=== PATIENT | male | born 1990 | race Caucasian/White ===

== ENCOUNTER 2016-03-29 12:46 | Emergency (ER) | payer SELFPAY ==
--- NOTE | 2016-03-29 13:04 | ER Document Report ---
ED Medical Screen (RME) - General Chief Complaint: Shortness Of Breath Stated Complaint: DIFFICULTY BREATHING Time seen by provider: 13:03 Mode of Arrival: Wheelchair Information source: Patient TRAVEL OUTSIDE OF THE [place] IN LAST 30 DAYS: No - HPI Patient complains to provider of: COUGH, DIFFICULTY BREATHING Onset: Other - 2 DAYS Onset/Duration: Gradual Quality of pain: Achy Severity: Moderate Pain Level: 4 Associated Symptoms: Cough (nonproductive), Hurts to breath, Shortness of breath Exacerbated by: Coughing, Deep breathing Relieved by: Denies Similar symptoms previously: Yes Recently seen / treated by doctor: No - Related Data Smoking: Quit less than 1 year Frequency of alcohol use: Rare Drug Abuse: None Pertinent History: LVH COPD ASTHMA HTN Allergies/Adverse Reactions: No Known Allergies Allergy (Verified 03/29/16 12:55) Past Medical History - Social History Chew tobacco use (# tins/day): - recently quit Frequency of alcohol use: None Drug Abuse: None - Past Medical History Cardiac Medical History: Reports: Hx Hypertension Pulmonary Medical History: Reports: Hx Asthma, Hx COPD Psychiatric Medical History: Reports: Hx Anxiety, Hx Depression - Immunizations Hx Diphtheria, Pertussis, Tetanus Vaccination: Yes Physical Exam - Vital signs Vitals: Temp Pulse Resp BP Pulse Ox 98.7 F 80 24 H 138/78 H 94 03/29/16 12:56 03/29/16 12:56 03/29/16 12:56 03/29/16 12:56 03/29/16 12:56 Course - Vital Signs Vital signs: Temp Pulse Resp BP Pulse Ox 98.7 F 80 24 H 138/78 H 94 03/29/16 12:56 03/29/16 12:56 03/29/16 12:56 03/29/16 12:56 03/29/16 12:56
[2016-03-29] MEDS ORDERED: ALBUTEROL SULFATE 0.083% NEB 2.5 MG/3 ML AMPUL NEB ONE (13:13)
[2016-03-29] MEDS ORDERED: PREDNISONE 20 MG TABLET PO ONE (14:57)
[2016-03-29] MEDS ORDERED: IPRATROPIUM/ALBUTEROL 0.5-2.5 MG/3 ML AMPUL NEB ONE (14:57)
--- NOTE | 2016-03-29 15:02 | ER Document Report ---
ED Respiratory Problem - General Chief Complaint: Shortness Of Breath Stated Complaint: DIFFICULTY BREATHING Time seen by provider: 15:01 Mode of Arrival: Wheelchair Information source: Patient Notes: This is a 24-year-old man with a history of COPD/obstructive sleep apnea, morbid obesity, chronic respiratory failure, hypertension, hypothyroidism. The patient presents to the emergency room with cough, shortness of breath, wheezing , subjective fevers and chills and sinus congestion. Patient states symptoms started 2-3 days ago. TRAVEL OUTSIDE OF THE [place] IN LAST 30 DAYS: No - HPI Patient complains to provider of: COPD, Cough, Short of breath Onset: Just prior to arrival Duration: Continuous Initiating Event: URI Quality of pain: No pain Severity: None Pain Level: Denies Context: Hx COPD Short of Breath: Moderate Chest pain/discomfort: denies: Center, Constant, Heaviness, Intermittent, Left, Pain, Radiates to arm, Radiates to back, Radiates to jaw, Right, Tightness, Worse with deep breaths Cough: Nonproductive Sputum amount: None Sputum color: denies: Brown, Clear, Creamy, [place], Green, [place] tinged, Red (blood ), Red Specks, Rust, Small Clots, [place], White, Yellow Sputum consistency: denies: Frothy, Mucoid, Mucoid Plug, Tenacious, Thick, Thin At home treatment: denies: Bronchodilators, CPAP, Diuretics, Inhaled steroids, Oral steroids, Oxygen, Singulair, Theophylline EMS treatments: No: Bronchodilators, CPAP, Diuretics, Epinephrine, Nitrates, Oxygen, Solumedrol Associated symptoms: Congestion, Cough, Short of breath, Wheezing Similar symptoms previously: Yes Recently seen / treated by doctor: No - Related Data Allergies/Adverse Reactions: No Known Allergies Allergy (Verified 03/29/16 12:55) Past Medical History - General Information source: Patient - Social History Smoking Status: Former Smoker Cigarette use (# per day): No Chew tobacco use (# tins/day): No - recently quit Smoking Education Provided: No Frequency of alcohol use: None Drug Abuse: None Lives with: Family Family History: Reviewed & Not Pertinent Patient has suicidal ideation: No Patient has homicidal ideation: No - Past Medical History Cardiac Medical History: Reports: Hx Hypertension Pulmonary Medical History: Reports: Hx Asthma, Hx COPD Psychiatric Medical History: Reports: Hx Anxiety, Hx Depression - Immunizations Hx Diphtheria, Pertussis, Tetanus Vaccination: Yes Review of Systems - Review of Systems Constitutional: Chills EENT: See HPI Cardiovascular: No symptoms reported Respiratory: See HPI Gastrointestinal: No symptoms reported Genitourinary: No symptoms reported Male Genitourinary: No symptoms reported Musculoskeletal: No symptoms reported Skin: No symptoms reported Hematologic/Lymphatic: No symptoms reported Neurological/Psychological: No symptoms reported Physical Exam - Vital signs Vitals: Temp Pulse Resp BP Pulse Ox 98.7 F 80 24 H 138/78 H 94 03/29/16 12:56 03/29/16 12:56 03/29/16 12:56 03/29/16 12:56 03/29/16 12:56 Notes: Physical exam: GENERAL: 75-year-old man, alert and oriented 3, no acute distress HEAD: Atraumatic, normocephalic. EYES: Pupils equal round and reactive to light, extraocular movements intact, sclera anicteric, conjunctiva are normal. ENT: TMs normal, nares patent, oropharynx clear without exudates. Moist mucous membranes. NECK: Normal range of motion, supple without lymphadenopathy or JVD. LUNGS: Wheezing, nonproductive cough. HEART: Regular rate and rhythm without murmurs, rubs or gallops. ABDOMEN: Soft, nontender, normoactive bowel sounds. No guarding, no rebound. No masses appreciated. EXTREMITIES: Normal range of motion, no pitting or edema. No clubbing or cyanosis. NEUROLOGICAL: Cranial nerves II through XII grossly intact. Normal speech, normal gait. PSYCH: Normal mood, normal affect. SKIN: Warm, Dry, normal turgor, no rashes or lesions noted. Course - Re-evaluation Re-evalutation: 03/29/16 23:55 Patient given nebulizer treatment. Looking better. Steroids, azithromycin and guaifenesin given in the ER. - Vital Signs Vital signs: Temp Pulse Resp BP Pulse Ox 98.9 F 72 24 H 139/82 H 95 03/29/16 16:48 03/29/16 16:48 03/29/16 12:56 03/29/16 16:48 03/29/16 16:48 - Diagnostic Test Radiology reviewed: Image reviewed, Reports reviewed - Chest x-ray shows no infiltrates or effusions Discharge - Discharge Clinical Impression: bronchitis with bronchospasm, COPD Hypertension Qualifiers: Hypertension type: essential hypertension Qualified Code(s): I10 - Essential ( primary) hypertension Clinical Impression: (Ruled Out): Prehypertension Condition: Stable Disposition: HOME, SELF-CARE Additional Instructions: Recommendations: Rest, drink plenty of fluids. Start the azithromycin: Start tomorrow, you were given today's dose in the ER. Start the prednisone tomorrow: New given today's dose in the ER Use the inhaler as needed. Guaifenesin twice daily (you were given tonight's dose in the ER). Return to the emergency room for worsening shortness of breath or any concerns he getting worse. Prescriptions: Azithromycin 250 mg PO DAILY #4 tablet Guaifenesin [Guaifenesin LA] 1,200 mg PO BID #10 tab.sr.12h Prednisone [Deltasone 20 mg Tablet] 3 tab PO DAILY 5 Days Forms: Elevated Blood Pressure, Return to Work Referrals: MAY HERNANDEZ MD [Primary Care Provider] - Follow up in 1 week
[2016-03-29] MEDS ORDERED: AZITHROMYCIN 250 MG TABLET PO ONE (15:34)
[2016-03-29] MEDS ORDERED: GUAIFENESIN 600 MG TABLET.SA PO ONE (16:39)
[2016-03-29 17:15] VITALS: BP 139/82
== END 2016-03-29 17:14 | disposition home or self-care (01) ==
LOC: ER 12:46
DX: J44.9 Chronic obstructive pulmonary disease, unspecified (principal); J45.909 Unspecified asthma, uncomplicated; R05 Cough; R06.02 Shortness of breath; R68.83 Chills (without fever); R09.81 Nasal congestion; I10 Essential (primary) hypertension; E66.01 Morbid (severe) obesity due to excess calories; Z68.44 Body mass index [BMI] 60.0-69.9, adult; Z87.891 Personal history of nicotine dependence
CPT/HCPCS: 94640 ×2; 99285; 87804; 71020; J7512; J7620

== ENCOUNTER 2016-05-01 12:09 | Inpatient (IN) | payer SELFPAY ==
--- NOTE | 2016-05-01 12:43 | ER Document Report ---
ED Medical Screen (RME) - General Stated Complaint: CHEST PAIN Mode of Arrival: Wheelchair Information source: Patient Notes: Patient presents complaining of COPD exacerbation. Patient states he's been having some difficulty with his compressor for his home oxygen. Patient does complain of some chest pain but states his only with coughing. TRAVEL OUTSIDE OF THE [place] IN LAST 30 DAYS: No - Related Data Allergies/Adverse Reactions: No Known Allergies Allergy (Verified 03/29/16 12:55) Past Medical History - Past Medical History Cardiac Medical History: Reports: Hx Hypertension Pulmonary Medical History: Reports: Hx Asthma, Hx COPD Psychiatric Medical History: Reports: Hx Anxiety, Hx Depression - Immunizations Hx Diphtheria, Pertussis, Tetanus Vaccination: Yes Physical Exam - Respiratory Respiratory status: Labored - Slightly labored Breath sounds: Rhonchi, Wheezing - Right side
[2016-05-01 13:13] LABS: ABSOLUTE LYMPHOCYTES (AUTO) 0.9 10^3/uL (0.5-4.7); ABSOLUTE MONOCYTES (AUTO) 0.5 10^3/uL (0.1-1.4); ABSOLUTE NEUT (AUTO) 4.9 10^3/uL (1.7-8.2); BASOPHILS % (AUTO) 0.2 % (0-2); EOSINOPHILS % (AUTO) 0.1 % (0-6); HEMATOCRIT 43.9 % (37.9-51.0); HEMOGLOBIN 14.4 g/dL (13.5-17.0); HGB HCT DIFFERENCE -0.7; LYMPHOCYTES % (AUTO) 13.9 % (13-45); MEAN CORPUSCULAR HEMOGLOBIN 29.6 pg (27.0-33.4); MEAN CORPUSCULAR HGB CONC 32.9 g/dL (32.0-36.0); MEAN CORPUSCULAR VOLUME 90 fl (80-97); MONOCYTES % (AUTO) 8.2 % (3-13); RED BLOOD COUNT 4.86 10^6/uL (4.35-5.55); RED CELL DISTRIBUTION WIDTH 14.6 % (11.5-14.0); SEGMENTED NEUTROPHILS % (AUTO) 77.6 % (42-78); WHITE BLOOD COUNT 6.3 10^3/uL (4.0-10.5)
[2016-05-01] MEDS ORDERED: IPRATROPIUM/ALBUTEROL 0.5-2.5 MG/3 ML AMPUL NEB ONE ×2 (13:54)
[2016-05-01 14:10] LABS: ARTERIAL BLOOD BASE EXCESS 6.5 mmol/L; ARTERIAL BLOOD O2 SATURATION 90.5 % (94-98)
--- NOTE | 2016-05-01 14:18 | ER Document Report ---
ED General - General Chief Complaint: Shortness Of Breath Stated Complaint: CHEST PAIN Mode of Arrival: Wheelchair Information source: Patient Notes: 25-year-old male history of asthma COPD who is on 5 L nasal cannula at home at all times presents with complaints of shortness of breath nonproductive cough. Patient notes that his compressor is not working appropriately and he is unable to call the company since he owes them so much money. Patient denies any fevers or chills nausea vomiting or diarrhea, patient is playing on his cell phone on my arrival to the room TRAVEL OUTSIDE OF THE [place] IN LAST 30 DAYS: No - HPI Onset: Other Onset/Duration: Intermittent Quality of pain: Sharp Severity: Mild Pain Level: 1 Associated symptoms: Chest pain, Shortness of breath Exacerbated by: Walking Relieved by: Denies Similar symptoms previously: Yes Recently seen / treated by doctor: No - Related Data Allergies/Adverse Reactions: No Known Allergies Allergy (Verified 03/29/16 12:55) Past Medical History - General Information source: Patient - Social History Smoking Status: Former Smoker Cigarette use (# per day): No Chew tobacco use (# tins/day): No Smoking Education Provided: No Family History: Reviewed & Not Pertinent - Past Medical History Cardiac Medical History: Reports: Hx Hypertension Pulmonary Medical History: Reports: Hx Asthma, Hx COPD Psychiatric Medical History: Reports: Hx Anxiety, Hx Depression Surgical Hx: Negative - Immunizations Hx Diphtheria, Pertussis, Tetanus Vaccination: Yes Review of Systems - Review of Systems Notes: REVIEW OF SYSTEMS: CONSTITUTIONAL : Denies fever, chills, or sweats. Denies recent illness. EENT: Denies eye, ear, throat, or mouth pain or symptoms. Denies nasal or sinus congestion or discharge. Denies throat, tongue, or mouth swelling or difficulty swallowing. CARDIOVASCULAR: Admits to chest wall pain RESPIRATORY: Admits shortness breath difficulty breathing nonproductive cough GASTROINTESTINAL: Denies abdominal pain or distention. Denies nausea, vomiting , or diarrhea. Denies blood in vomitus, stools, or per rectum. Denies black, tarry stools. Denies constipation. GENITOURINARY: Denies difficulty urinating, painful urination, burning, frequency, blood in urine, or discharge. MUSCULOSKELETAL: Denies back or neck pain or stiffness. Denies joint pain or swelling. SKIN: Denies rash, lesions or sores. HEMATOLOGIC : Denies easy bruising or bleeding. LYMPHATIC: Denies swollen, enlarged glands. NEUROLOGICAL: Denies confusion or altered mental status. Denies passing out or loss of consciousness. Denies dizziness or lightheadedness. Denies headache. Denies weakness or paralysis or loss of use of either side. Denies problems with gait or speech. Denies sensory loss, numbness, or tingling. Denies seizures. PSYCHIATRIC: Denies anxiety or stress. Denies depression, suicidal ideation, or homicidal ideation. ALL OTHER SYSTEMS REVIEWED AND NEGATIVE. Dictation was performed using [employer] recognition software PHYSICAL EXAMINATION: GENERAL: Morbidly obese male moderate respiratory distress HEAD: Atraumatic, normocephalic. EYES: Pupils equal round and reactive to light, extraocular movements intact, sclera anicteric, conjunctiva are normal. ENT: Nares patent, oropharynx clear without exudates. Moist mucous membranes. NECK: Normal range of motion, supple without lymphadenopathy LUNGS: Tachypneic very coarse wheezing all throughout HEART: Regular rate and rhythm without murmurs ABDOMEN: Soft, nontender, nondistended abdomen. No guarding, no rebound. No masses appreciated. Musculoskeletal: Normal range of motion, no pitting or edema. No cyanosis. NEUROLOGICAL: Cranial nerves grossly intact. Normal speech, normal gait. Normal sensory, motor exams PSYCH: Normal mood, normal affect. SKIN: Warm, Dry, normal turgor, no rashes or lesions noted. Physical Exam - Vital signs Vitals: Pulse Ox 95 05/01/16 12:40 Course - Re-evaluation Re-evalutation: 05/01/16 14:21 Patient's blood gas is noted to be consistent with hypercapnia patient immediately ordered a BiPAP 05/01/16 15:48 I will admit the patient due ot the respiratroy distress and hypercapnea. - Vital Signs Vital signs: Temp Pulse Resp BP Pulse Ox 13 92 05/01/16 14:33 05/01/16 13:17 - Laboratory Result Diagrams: 05/01/16 12:55 05/01/16 14:27 Laboratory results interpreted by me: 05/01/16 05/01/16 05/01/16 12:55 13:24 14:27 RDW 14.6 H Carbonic Acid 2.47 H ABG pH 7.27 L ABG pCO2 82.1 H* ABG pO2 69.2 L ABG HCO3 36.9 H ABG Total CO2 39.4 H ABG O2 Saturation 90.5 L Carbon Dioxide 39 H AST 79 H ALT 100 H Critical Care Note - Critical Care Note Total time excluding time spent on procedures (mins): 34 Comments: 34 minutes of critical care time spent in direct contact evaluating and reevaluating the patient, treating symptoms, reviewing labs and studies and speaking with family and consultants excluding any procedures Discharge - Discharge Clinical Impression: Acute exacerbation of COPD with asthma, Hypercapnia Morbid obesity Qualifiers: Obesity type: due to excess calories Qualified Code(s): E66.01 - Morbid (severe ) obesity due to excess calories Condition: Serious Disposition: ADMITTED INPATIENT Admitting Provider: Hospitalist Unit Admitted: [facility]
[2016-05-01 15:04] LABS: ALANINE AMINOTRANSFERASE 100 U/L (21-72); ALBUMIN 3.8 g/dL (3.5-5.0); ALKALINE PHOSPHATASE 65 U/L (38-126); ANION GAP 7 (5-19); ASPARTATE AMINO TRANSFERASE 79 U/L (17-59); BILIRUBIN,TOTAL 0.5 mg/dL (0.2-1.3); BLOOD UREA NITROGEN 12 mg/dL (7-20); CALCIUM 8.7 mg/dL (8.4-10.2); CARBON DIOXIDE 39 mmol/L (22-30); CHLORIDE 98 mmol/L (98-107); CREATINE KINASE 90 U/L (55-170); CREATININE RESULT 0.84 mg/dL (0.52-1.25); GLUCOSE 79 mg/dL (75-110); POTASSIUM 4.5 mmol/L (3.6-5.0); SODIUM 144.2 mmol/L (137-145); TOTAL PROTEIN 7.2 g/dL (6.3-8.2)
[2016-05-01 15:16] LABS: CREATINE KINASE MB 0.87 ng/mL (<4.55)
[2016-05-01 15:18] LABS: TROPONIN I < 0.012 ng/mL
[2016-05-01] MEDS ORDERED: ACETAMINOPHEN 325 MG TABLET PO PRN (16:10)
[2016-05-01] MEDS ORDERED: ONDANSETRON 4 MG TAB.RAPDIS PO PRN (16:10)
[2016-05-01] MEDS ORDERED: ALBUTEROL SULFATE HFA (90 MCG/PUFF) 200 PUFF/8.5 GM MDI IH PRN (16:15)
--- NOTE | 2016-05-01 16:33 | PDOC H&P ---
History of Present Illness Admission Date/PCP: 05/01/2016. Followed at [facility] Patient complains of: Shortness of breath History of Present Illness: ADIN HERNANDEZ III is a 25 year old male with a history of morbid obesity with hypoventilation syndrome and COPD asthma who presents with a 2 to three-day history of shortness of breath. Patient reports that his compressor for his oxygen his broken he has not contacted his provider. Patient reports he got more short of breath but has had fevers and some chills along with a productive cough. The patient was found to have an acute COPD exacerbation and possible right upper lobe pneumonia. The patient denies any chest pain. He denies any orthopnea or PND. He has had lower extremity edema which has been chronic. Past Medical History Cardiac Medical History: Reports: Hypertension Pulmonary Medical History: Reports: Asthma, Chronic Obstructive Pulmonary Disease (COPD) EENT Medical History: Reports: None Neurological Medical History: Reports: None Endocrine Medical History: Reports: Obesity Renal/ Medical History: Reports: None Malignancy Medical History: Reports: None GI Medical History: Reports: None Musculoskeltal Medical History: Reports: None Skin Medical History: Reports: None Psychiatric Medical History: Reports: Depression, General Anxiety Disorder Traumatic Medical History: Reports: None Hematology: Reports: None Infectious Medical History: Reports: None Past Surgical History Past Surgical History: Reports: None Social History Information Source: Patient Lives with: Family Smoking Status: Former Smoker Frequency of Alcohol Use: None Hx Recreational Drug Use: No Drugs: None Hx Prescription Drug Abuse: No - Advance Directive Resuscitation Status: Full Code Family History Family History: Father in his 40s and his health history is unknown. Mother is age 46 alive and has diabetes mellitus. Parental Family History Reviewed: Yes Children Family History Reviewed: No Sibling(s) Family History Reviewed.: No Medication/Allergy Home Medications: Albuterol Sulfate [Albuterol Sulfate 2.5mg/3 mL] 1 vial IH Q4 PRN #30 vial 08/28 Albuterol Sulfate [Proair HFA Inhalation Aerosol 8.5 gm MDI] 1 puff IH Q4 PRN # 1 mdi 08/29/15 Azithromycin 250 mg PO DAILY #4 tablet 08/29/15 Citalopram Hydrobromide [Celexa 40 mg Tablet] 1 tab PO DAILY #30 tablet Prednisone 40 mg PO DAILY #10 tablet 08/29/15 Dicyclomine HCl [Bentyl 20 mg Tablet] 20 mg PO QID #20 tablet 02/19/16 Azithromycin 250 mg PO DAILY #4 tablet 03/29/16 Guaifenesin [Guaifenesin LA] 1,200 mg PO BID #10 tab.sr.12h 03/29/16 Prednisone [Deltasone 20 mg Tablet] 3 tab PO DAILY 5 Days 03/29/16 Allergies/Adverse Reactions: No Known Allergies Allergy (Verified 03/29/16 12:55) Review of Systems Constitutional: PRESENT: chills, fever(s). ABSENT: headache(s), night sweats, weakness, weight gain, weight loss Eyes: ABSENT: visual disturbances Ears: ABSENT: hearing changes Cardiovascular: PRESENT: dyspnea on exertion, edema. ABSENT: chest pain, orthropnea, palpitations Respiratory: PRESENT: cough, dyspnea, sputum. ABSENT: hemoptysis Gastrointestinal: ABSENT: abdominal pain, constipation, diarrhea, hematemesis, hematochezia, nausea, vomiting Genitourinary: ABSENT: dysuria, hematuria Musculoskeletal: ABSENT: joint swelling Integumentary: ABSENT: rash, wounds Neurological: ABSENT: abnormal gait, abnormal speech, confusion, dizziness, focal weakness, syncope Psychiatric: PRESENT: anxiety Endocrine: ABSENT: cold intolerance, heat intolerance, polydipsia, polyuria Hematologic/Lymphatic: ABSENT: easy bleeding, easy bruising Physical Exam Vital Signs: Temp Pulse Resp BP Pulse Ox 13 92 05/01/16 14:33 05/01/16 13:17 General appearance: PRESENT: mild distress, morbidly obese Head exam: PRESENT: atraumatic, normocephalic Eye exam: PRESENT: conjunctiva pink, EOMI, PERRLA. ABSENT: scleral icterus Ear exam: PRESENT: normal external ear exam Mouth exam: PRESENT: moist, tongue midline Neck exam: ABSENT: carotid bruit, JVD, lymphadenopathy, thyromegaly Respiratory exam: PRESENT: rales - Right sided. ABSENT: rhonchi, wheezes Cardiovascular exam: PRESENT: RRR. ABSENT: diastolic murmur, rubs, systolic murmur GI/Abdominal exam: PRESENT: normal bowel sounds, soft. ABSENT: distended, guarding, mass, organolmegaly, rebound, tenderness Rectal exam: PRESENT: deferred Extremities exam: PRESENT: pedal edema. ABSENT: calf tenderness, clubbing Neurological exam: PRESENT: alert, awake, oriented to person, oriented to place , oriented to time, oriented to situation, CN II-XII grossly intact. ABSENT: motor sensory deficit Psychiatric exam: PRESENT: appropriate affect Skin exam: PRESENT: dry, intact, warm. ABSENT: cyanosis, rash Results Laboratory Results: 05/01/16 12:55 05/01/16 14:27 05/01/16 05/01/16 05/01/16 12:55 12:55 13:24 WBC 6.3 RBC 4.86 Hgb 14.4 Hct 43.9 MCV 90 MCH 29.6 MCHC 32.9 RDW 14.6 H Plt Count 203 Seg Neutrophils % 77.6 Lymphocytes % 13.9 Monocytes % 8.2 Eosinophils % 0.1 Basophils % 0.2 Absolute Neutrophils 4.9 Absolute Lymphocytes 0.9 Absolute Monocytes 0.5 Absolute Eosinophils 0.0 Absolute Basophils 0.0 Carbonic Acid 2.47 H HCO3/H2CO3 Ratio 14:1 ABG pH 7.27 L ABG pCO2 82.1 H* ABG pO2 69.2 L ABG HCO3 36.9 H ABG O2 Saturation 90.5 L ABG Base Excess 6.5 FiO2 40% Sodium Cancelled Potassium Cancelled Chloride Cancelled Carbon Dioxide Cancelled Anion Gap Cancelled BUN Cancelled Creatinine Cancelled Est GFR ( Amer) Cancelled Est GFR (Non-Af Amer) Cancelled Glucose Cancelled Calcium Cancelled Total Bilirubin Cancelled AST Cancelled ALT Cancelled Alkaline Phosphatase Cancelled Total Protein Cancelled Albumin Cancelled 05/01/16 14:27 WBC RBC Hgb Hct MCV MCH MCHC RDW Plt Count Seg Neutrophils % Lymphocytes % Monocytes % Eosinophils % Basophils % Absolute Neutrophils Absolute Lymphocytes Absolute Monocytes Absolute Eosinophils Absolute Basophils Carbonic Acid HCO3/H2CO3 Ratio ABG pH ABG pCO2 ABG pO2 ABG HCO3 ABG O2 Saturation ABG Base Excess FiO2 Sodium 144.2 Potassium 4.5 Chloride 98 Carbon Dioxide 39 H Anion Gap 7 BUN 12 Creatinine 0.84 Est GFR ( Amer) > 60 Est GFR (Non-Af Amer) > 60 Glucose 79 Calcium 8.7 Total Bilirubin 0.5 AST 79 H ALT 100 H Alkaline Phosphatase 65 Total Protein 7.2 Albumin 3.8 05/01/16 05/01/16 05/01/16 12:55 12:55 14:27 Creatine Kinase Cancelled 90 CK-MB (CK-2) Cancelled Troponin I Cancelled 05/01/16 14:27 Creatine Kinase CK-MB (CK-2) 0.87 Troponin I < 0.012 Impressions: Chest X-Ray 05/01/16 12:24 IMPRESSION: Early or developing right upper lobe pneumonia Assessment & Plan - Diagnosis (1) Acute exacerbation of COPD with asthma Is this a current diagnosis for this admission?: YesPlan: Patient appears also probably to have pneumonia. We'll treat with Rocephin, Zithromax and Solu-Medrol. Patient is currently on BiPAP and we will continue with that for now along with nebulizers. (2) Morbid obesity Qualifiers: Obesity type: due to excess calories Qualified Code(s): E66.01 - Morbid (severe) obesity due to excess calories Is this a current diagnosis for this admission?: YesPlan: Patient has obesity-hypoventilation syndrome. (3) Hypertension Qualifiers: Hypertension type: essential hypertension Qualified Code(s): I10 - Essential (primary) hypertension Is this a current diagnosis for this admission?: YesPlan: Patient has been on lisinopril 40 mg a day and we will continue with that. (4) Anxiety Is this a current diagnosis for this admission?: YesPlan: Patient has been taking Prozac 40 mg daily and will continue. - Time Time Spent: 50 to 70 Minutes - Inpatient Certification Medical Necessity: Need for Nebulizer Therapy and Monitoring of Response - Plan Summary Plan Summary: We'll admit as a regular inpatient as I anticipate this will require greater than 2 midnight hospital stay.
[2016-05-01] MEDS ORDERED: METHYLPREDNISOLONE INJ 40 MG/1 ML SDV IV ONE (17:00)
[2016-05-01] MEDS ORDERED: FLUOXETINE HCL 20 MG CAPSULE PO ONE (17:00)
[2016-05-01] MEDS: AZITHROMYCIN 250 MG TABLET PO SCH (17:58)
[2016-05-01] MEDS: CEFTRIAXONE 1 GM/D5W RTU 1 GM/50 ML RTUPB IV SCH (17:58)
[2016-05-01] MEDS: DICYCLOMINE HCL 20 MG TABLET PO SCH ×2 (17:59→22:11)
--- NOTE | 2016-05-01 19:26 | EKG REPORT ---
SEVERITY:- ABNORMAL ECG - SINUS TACHYCARDIA INCOMPLETE RIGHT BUNDLE BRANCH BLOCK : Confirmed by: Gibson Chicas 01-May-2016 19:25:28
[2016-05-01] MEDS: ALBUTEROL SULFATE 0.083% NEB 2.5 MG/3 ML AMPUL NEB SCH (21:04)
[2016-05-01] MEDS: FAMOTIDINE 20 MG TABLET PO SCH (22:11)
[2016-05-02 04:41] LABS: HEMATOCRIT 43.9 % (37.9-51.0); HEMOGLOBIN 14.3 g/dL (13.5-17.0); MEAN CORPUSCULAR HEMOGLOBIN 29.6 pg (27.0-33.4); MEAN CORPUSCULAR HGB CONC 32.7 g/dL (32.0-36.0); MEAN CORPUSCULAR VOLUME 91 fl (80-97); RED BLOOD COUNT 4.84 10^6/uL (4.35-5.55); RED CELL DISTRIBUTION WIDTH 14.5 % (11.5-14.0); WHITE BLOOD COUNT 6.7 10^3/uL (4.0-10.5)
[2016-05-02 05:01] LABS: ANION GAP 11 (5-19); BLOOD UREA NITROGEN 14 mg/dL (7-20); CALCIUM 8.6 mg/dL (8.4-10.2); CARBON DIOXIDE 32 mmol/L (22-30); CHLORIDE 100 mmol/L (98-107); CREATININE RESULT 0.62 mg/dL (0.52-1.25); GLUCOSE 127 mg/dL (75-110); MAGNESIUM 2.1 mg/dL (1.6-2.3); SODIUM 142.7 mmol/L (137-145)
[2016-05-02 05:11] LABS: POTASSIUM 5.6 mmol/L (3.6-5.0)
[2016-05-02] MEDS: METHYLPREDNISOLONE INJ 40 MG/1 ML SDV IV SCH ×2 (05:15→17:45)
[2016-05-02] MEDS: ALBUTEROL SULFATE 0.083% NEB 2.5 MG/3 ML AMPUL NEB SCH ×3 (07:42→19:47)
[2016-05-02] MEDS: ENOXAPARIN SODIUM INJ 40 MG/0.4 ML DISP.SYRIN SUBCUT SCH (09:09)
[2016-05-02] MEDS: DICYCLOMINE HCL 20 MG TABLET PO SCH ×4 (09:10→21:09)
[2016-05-02] MEDS: FLUOXETINE HCL 20 MG CAPSULE PO SCH (09:10)
[2016-05-02] MEDS: LISINOPRIL 10 MG TABLET PO SCH (09:11)
[2016-05-02] MEDS: FAMOTIDINE 20 MG TABLET PO SCH ×2 (09:11→21:09)
--- NOTE | 2016-05-02 12:27 | PDOC PROGRESS REPORT ---
Subjective Progress Note for:: 05/02/16 Subjective:: Still complains of shortness of breath. Physical Exam Vital Signs: Temp Pulse Resp BP Pulse Ox 98.0 F 60 17 126/93 H 92 05/02/16 07:31 05/02/16 07:44 05/02/16 07:44 05/02/16 07:31 05/02/16 07:44 Intake & Output 05/01/16 05/02/16 05/03/16 06:59 06:59 06:59 Intake Total 399 Output Total 500 Balance -101 Weight 198.3 kg General appearance: PRESENT: mild distress Eye exam: PRESENT: conjunctiva pink. ABSENT: scleral icterus Mouth exam: PRESENT: moist, tongue midline Neck exam: ABSENT: carotid bruit, JVD, lymphadenopathy, thyromegaly Respiratory exam: PRESENT: wheezes - Bilateral expiratory wheezes. Cardiovascular exam: PRESENT: RRR. ABSENT: diastolic murmur, rubs, systolic murmur GI/Abdominal exam: PRESENT: normal bowel sounds, soft. ABSENT: distended, guarding, mass, organolmegaly, rebound, tenderness Extremities exam: PRESENT: pedal edema - Trace pedal edema.. ABSENT: calf tenderness, clubbing Neurological exam: PRESENT: alert, awake, oriented to person, oriented to place , oriented to time, oriented to situation Psychiatric exam: PRESENT: appropriate affect Skin exam: PRESENT: dry, intact, warm. ABSENT: cyanosis, rash Results Laboratory Results: 05/02/16 03:37 05/02/16 03:37 05/02/16 05/02/16 03:37 03:37 WBC 6.7 RBC 4.84 Hgb 14.3 Hct 43.9 MCV 91 MCH 29.6 MCHC 32.7 RDW 14.5 H Plt Count 179 Sodium 142.7 Potassium 5.6 H D Chloride 100 Carbon Dioxide 32 H Anion Gap 11 BUN 14 Creatinine 0.62 Est GFR ( Amer) > 60 Est GFR (Non-Af Amer) > 60 Glucose 127 H Calcium 8.6 Magnesium 2.1 Impressions: Chest X-Ray 05/01/16 12:24 IMPRESSION: Early or developing right upper lobe pneumonia Assessment & Plan - Diagnosis (1) Acute exacerbation of COPD with asthma Is this a current diagnosis for this admission?: YesPlan: Patient appears also probably to have pneumonia. We'll treat with Rocephin, Zithromax and Solu-Medrol. Patient is currently on BiPAP and we will continue with that for now along with nebulizers. (2) Morbid obesity Qualifiers: Obesity type: due to excess calories Qualified Code(s): E66.01 - Morbid (severe) obesity due to excess calories Is this a current diagnosis for this admission?: YesPlan: Patient has obesity-hypoventilation syndrome. (3) Hypertension Qualifiers: Hypertension type: essential hypertension Qualified Code(s): I10 - Essential (primary) hypertension Is this a current diagnosis for this admission?: YesPlan: Patient has been on lisinopril 40 mg a day and we will continue with that. (4) Anxiety Is this a current diagnosis for this admission?: YesPlan: Patient has been taking Prozac 40 mg daily and will continue. - Time Time Spent with patient: 25-34 minutes - Inpatient Certification Medical Necessity: Need for Nebulizer Therapy and Monitoring of Response, Need for IV Antibiotics
[2016-05-02] MEDS: CEFTRIAXONE 1 GM/D5W RTU 1 GM/50 ML RTUPB IV SCH (17:45)
[2016-05-02] MEDS: AZITHROMYCIN 250 MG TABLET PO SCH (17:46)
[2016-05-03] MEDS ORDERED: ALBUTEROL SULFATE HFA (90 MCG/PUFF) 200 PUFF/8.5 GM MDI IH ONE (01:30)
[2016-05-03 04:52] LABS: ABSOLUTE LYMPHOCYTES (AUTO) 1.1 10^3/uL (0.5-4.7); ABSOLUTE MONOCYTES (AUTO) 0.8 10^3/uL (0.1-1.4); ABSOLUTE NEUT (AUTO) 6.2 10^3/uL (1.7-8.2); BASOPHILS % (AUTO) 0.2 % (0-2); EOSINOPHILS % (AUTO) 0.1 % (0-6); HEMATOCRIT 41.5 % (37.9-51.0); HEMOGLOBIN 13.5 g/dL (13.5-17.0); LYMPHOCYTES % (AUTO) 13.3 % (13-45); MEAN CORPUSCULAR HEMOGLOBIN 29.6 pg (27.0-33.4); MEAN CORPUSCULAR HGB CONC 32.5 g/dL (32.0-36.0); MEAN CORPUSCULAR VOLUME 91 fl (80-97); MONOCYTES % (AUTO) 10.5 % (3-13); RED BLOOD COUNT 4.55 10^6/uL (4.35-5.55); RED CELL DISTRIBUTION WIDTH 14.3 % (11.5-14.0); SEGMENTED NEUTROPHILS % (AUTO) 75.9 % (42-78); WHITE BLOOD COUNT 8.1 10^3/uL (4.0-10.5)
[2016-05-03] MEDS: METHYLPREDNISOLONE INJ 40 MG/1 ML SDV IV SCH (05:14)
[2016-05-03 05:15] LABS: ANION GAP 8 (5-19); BLOOD UREA NITROGEN 17 mg/dL (7-20); CALCIUM 9.3 mg/dL (8.4-10.2); CARBON DIOXIDE 35 mmol/L (22-30); CHLORIDE 100 mmol/L (98-107); CREATININE RESULT 0.63 mg/dL (0.52-1.25); GLUCOSE 161 mg/dL (75-110); POTASSIUM 5.2 mmol/L (3.6-5.0); SODIUM 143.4 mmol/L (137-145)
[2016-05-03] MEDS: ALBUTEROL SULFATE 0.083% NEB 2.5 MG/3 ML AMPUL NEB SCH ×3 (07:31→19:36)
[2016-05-03] MEDS: FAMOTIDINE 20 MG TABLET PO SCH ×2 (10:04→21:44)
[2016-05-03] MEDS: DICYCLOMINE HCL 20 MG TABLET PO SCH ×4 (10:05→21:44)
[2016-05-03] MEDS: LISINOPRIL 10 MG TABLET PO SCH (10:05)
[2016-05-03] MEDS: ENOXAPARIN SODIUM INJ 40 MG/0.4 ML DISP.SYRIN SUBCUT SCH (10:06)
[2016-05-03] MEDS: FLUOXETINE HCL 20 MG CAPSULE PO SCH (10:06)
--- NOTE | 2016-05-03 16:41 | PDOC PROGRESS REPORT ---
Subjective Progress Note for:: 05/03/16 Subjective:: Feeling better. Cough is less. No chest pain, no worsening shortness of breath. No diarrhea. No chills or fever, nausea or vomiting. Able to move around better. Physical Exam Vital Signs: Temp Pulse Resp BP Pulse Ox 97.4 F 79 20 136/68 H 94 05/03/16 11:41 05/03/16 14:00 05/03/16 13:45 05/03/16 11:41 05/03/16 13:45 Intake & Output 05/02/16 05/03/16 05/04/16 06:59 06:59 06:59 Intake Total 399 3200 236 Output Total 500 2750 525 Balance -101 450 -289 Weight 198.3 kg 198.5 kg General appearance: PRESENT: no acute distress, cooperative, morbidly obese Head exam: PRESENT: normocephalic Eye exam: PRESENT: EOMI Mouth exam: PRESENT: moist, neck supple Neck exam: ABSENT: JVD Respiratory exam: PRESENT: unlabored, wheezes - Mild occasional bilaterally. ABSENT: crackles, retraction Cardiovascular exam: PRESENT: RRR. ABSENT: gallop GI/Abdominal exam: PRESENT: normal bowel sounds, soft. ABSENT: tenderness Extremities exam: PRESENT: other - Trace pretibial edema Neurological exam: PRESENT: alert, awake, oriented to situation Skin exam: PRESENT: dry, warm. ABSENT: cyanosis Results Laboratory Results: 05/03/16 03:52 05/03/16 03:52 05/03/16 05/03/16 03:52 03:52 WBC 8.1 RBC 4.55 Hgb 13.5 Hct 41.5 MCV 91 MCH 29.6 MCHC 32.5 RDW 14.3 H Plt Count 186 Seg Neutrophils % 75.9 Lymphocytes % 13.3 Monocytes % 10.5 Eosinophils % 0.1 Basophils % 0.2 Absolute Neutrophils 6.2 Absolute Lymphocytes 1.1 Absolute Monocytes 0.8 Absolute Eosinophils 0.0 Absolute Basophils 0.0 Sodium 143.4 Potassium 5.2 H Chloride 100 Carbon Dioxide 35 H Anion Gap 8 BUN 17 Creatinine 0.63 Est GFR ( Amer) > 60 Est GFR (Non-Af Amer) > 60 Glucose 161 H Calcium 9.3 Impressions: Chest X-Ray 05/01/16 12:24 IMPRESSION: Early or developing right upper lobe pneumonia Assessment & Plan - Diagnosis (1) Acute on chronic respiratory failure with hypoxemia Is this a current diagnosis for this admission?: Yes (2) Pneumonia Qualifiers: Pneumonia type: due to unspecified organism Laterality: right Lung location: lower lobe of lung Qualified Code(s): J18.1 - Lobar pneumonia, unspecified organism Is this a current diagnosis for this admission?: Yes (3) Acute exacerbation of COPD with asthma Is this a current diagnosis for this admission?: Yes (4) Hyperkalemia Is this a current diagnosis for this admission?: Yes (5) Anxiety Is this a current diagnosis for this admission?: Yes (6) Hypertension Qualifiers: Hypertension type: essential hypertension Qualified Code(s): I10 - Essential (primary) hypertension Is this a current diagnosis for this admission?: Yes (7) Morbid obesity Qualifiers: Obesity type: due to excess calories Qualified Code(s): E66.01 - Morbid (severe) obesity due to excess calories Is this a current diagnosis for this admission?: Yes - Time Time Spent with patient: 25-34 minutes - Plan Summary Plan Summary: Discontinue lisinopril. Begin nifedipine for blood pressure control. Give Kayexalate. We are going to increase steroids, continue antibiotics, bronchodilators, supplemental oxygen. Continue supportive care. Recheck electrolytes in the morning.
[2016-05-03] MEDS ORDERED: METHYLPREDNISOLONE INJ 40 MG/1 ML SDV IV SCH (16:45)
[2016-05-03] MEDS ORDERED: SODIUM POLYSTYRENE SULFONATE 15 GM/60 ML PO ONE (17:00)
[2016-05-03] MEDS: AZITHROMYCIN 250 MG TABLET PO SCH (17:35)
[2016-05-03] MEDS: CEFTRIAXONE 1 GM/D5W RTU 1 GM/50 ML RTUPB IV SCH (17:38)
[2016-05-03] MEDS: METHYLPREDNISOLONE INJ 125 MG/2 ML SDV IV SCH ×2 (17:38→23:10)
[2016-05-04] MEDS: METHYLPREDNISOLONE INJ 125 MG/2 ML SDV IV SCH ×4 (05:05→23:59)
[2016-05-04 05:11] LABS: ANION GAP 9 (5-19); BLOOD UREA NITROGEN 19 mg/dL (7-20); CALCIUM 9.1 mg/dL (8.4-10.2); CARBON DIOXIDE 35 mmol/L (22-30); CHLORIDE 100 mmol/L (98-107); CREATININE RESULT 0.72 mg/dL (0.52-1.25); GLUCOSE 145 mg/dL (75-110); POTASSIUM 4.9 mmol/L (3.6-5.0); SODIUM 144.4 mmol/L (137-145)
[2016-05-04] MEDS: ALBUTEROL SULFATE 0.083% NEB 2.5 MG/3 ML AMPUL NEB SCH ×3 (07:57→19:39)
[2016-05-04] MEDS: ENOXAPARIN SODIUM INJ 40 MG/0.4 ML DISP.SYRIN SUBCUT SCH (08:52)
[2016-05-04] MEDS: DICYCLOMINE HCL 20 MG TABLET PO SCH ×4 (10:17→22:05)
[2016-05-04] MEDS: FLUOXETINE HCL 20 MG CAPSULE PO SCH (10:17)
[2016-05-04] MEDS: NIFEDIPINE 30 MG TAB.ER.24 PO SCH (10:17)
[2016-05-04] MEDS: FAMOTIDINE 20 MG TABLET PO SCH ×2 (10:17→22:05)
--- NOTE | 2016-05-04 11:55 | PDOC PROGRESS REPORT ---
Subjective Progress Note for:: 05/04/16 Subjective:: Slightly feeling better today than yesterday. Cough is less. No chest pain, no worsening shortness of breath. No diarrhea. No chills or fever, nausea or vomiting. Able to move around better. Cough is dry. Physical Exam Vital Signs: Temp Pulse Resp BP Pulse Ox 97.5 F 59 L 19 130/58 H 98 05/04/16 08:04 05/04/16 08:04 05/04/16 08:04 05/04/16 08:04 05/04/16 08:04 Intake & Output 05/03/16 05/04/16 05/05/16 06:59 06:59 06:59 Intake Total 3200 1052 Output Total 2750 1700 Balance 450 -648 Weight 198.5 kg 198.8 kg General appearance: PRESENT: no acute distress, obese Head exam: PRESENT: normocephalic Eye exam: PRESENT: EOMI Mouth exam: PRESENT: moist, neck supple Neck exam: ABSENT: JVD Respiratory exam: PRESENT: wheezes - minimal B/L Cardiovascular exam: PRESENT: RRR. ABSENT: gallop GI/Abdominal exam: PRESENT: hypoactive bowel sounds, soft. ABSENT: tenderness Extremities exam: PRESENT: other - trace edema B/L Neurological exam: PRESENT: alert, awake, oriented to person, oriented to place , oriented to time, oriented to situation Skin exam: PRESENT: dry, warm. ABSENT: cyanosis Results Laboratory Results: 05/03/16 03:52 05/04/16 03:55 05/04/16 03:55 Sodium 144.4 Potassium 4.9 Chloride 100 Carbon Dioxide 35 H Anion Gap 9 BUN 19 Creatinine 0.72 Est GFR ( Amer) > 60 Est GFR (Non-Af Amer) > 60 Glucose 145 H Calcium 9.1 05/01/16 23:15 Sputum Gram Stain - Final 05/01/16 23:15 Sputum Sputum Culture - Final C.albicans/C.dubliniensis Reduced Normal Sara Impressions: Chest X-Ray 05/01/16 12:24 IMPRESSION: Early or developing right upper lobe pneumonia Assessment & Plan - Diagnosis (1) Acute on chronic respiratory failure with hypoxemia Is this a current diagnosis for this admission?: Yes (2) Pneumonia Qualifiers: Pneumonia type: due to unspecified organism Laterality: right Lung location: lower lobe of lung Qualified Code(s): J18.1 - Lobar pneumonia, unspecified organism Is this a current diagnosis for this admission?: Yes (3) Acute exacerbation of COPD with asthma Is this a current diagnosis for this admission?: Yes (4) Hyperkalemia Is this a current diagnosis for this admission?: Yes (5) Anxiety Is this a current diagnosis for this admission?: Yes (6) Hypertension Qualifiers: Hypertension type: essential hypertension Qualified Code(s): I10 - Essential (primary) hypertension Is this a current diagnosis for this admission?: Yes (7) Morbid obesity Qualifiers: Obesity type: due to excess calories Qualified Code(s): E66.01 - Morbid (severe) obesity due to excess calories Is this a current diagnosis for this admission?: Yes - Time Time Spent with patient: 15-24 minutes - Plan Summary Plan Summary: Increase activity. Start tessalon pearles. Cont. steroids, nebulizers and antibiotics. Cont. supportive care. Possible D/C in am.
[2016-05-04] MEDS ORDERED: BENZONATATE 100 MG CAPSULE PO ONE (12:00)
[2016-05-04] MEDS: BENZONATATE 100 MG CAPSULE PO SCH ×2 (13:28→22:05)
[2016-05-04] MEDS: AZITHROMYCIN 250 MG TABLET PO SCH (17:36)
[2016-05-04] MEDS: CEFTRIAXONE 1 GM/D5W RTU 1 GM/50 ML RTUPB IV SCH (17:36)
[2016-05-05] MEDS: BENZONATATE 100 MG CAPSULE PO SCH ×2 (05:23→13:58)
[2016-05-05] MEDS: METHYLPREDNISOLONE INJ 125 MG/2 ML SDV IV SCH ×3 (05:23→17:29)
[2016-05-05] MEDS: ENOXAPARIN SODIUM INJ 40 MG/0.4 ML DISP.SYRIN SUBCUT SCH (07:57)
[2016-05-05] MEDS: ALBUTEROL SULFATE 0.083% NEB 2.5 MG/3 ML AMPUL NEB SCH ×2 (08:01→14:04)
[2016-05-05] MEDS: DICYCLOMINE HCL 20 MG TABLET PO SCH ×3 (09:51→17:25)
[2016-05-05] MEDS: FAMOTIDINE 20 MG TABLET PO SCH (09:52)
[2016-05-05] MEDS: FLUOXETINE HCL 20 MG CAPSULE PO SCH (09:52)
[2016-05-05] MEDS: NIFEDIPINE 30 MG TAB.ER.24 PO SCH (09:52)
--- NOTE | 2016-05-05 14:57 | PDOC DISCHARGE SUMMARY ---
General - Admit/Disc Date/PCP Admission Date/Primary Care Provider: 05/01/16 16:10 Discharge Date: 05/05/16 - Discharge Diagnosis (1) Acute on chronic respiratory failure with hypoxemia Is this a current diagnosis for this admission?: Yes (2) Pneumonia Is this a current diagnosis for this admission?: Yes (3) Acute exacerbation of COPD with asthma Is this a current diagnosis for this admission?: Yes (4) Hyperkalemia Is this a current diagnosis for this admission?: Yes (5) Anxiety Is this a current diagnosis for this admission?: Yes (6) Hypertension Is this a current diagnosis for this admission?: Yes (7) Morbid obesity Is this a current diagnosis for this admission?: Yes - Additional Information Resuscitation Status: Full Code Discharge Diet: Cardiac - low-fat low-salt Discharge Activity: Activity As Tolerated, Balance Activity w/Rest, Slowly Increase Activity Home Medications: Albuterol Sulfate [Proair HFA Inhalation Aerosol 8.5 gm MDI] 2 puff IH Q4HP PRN #1 hfa.aer.ad 05/05/16 Albuterol Sulfate [Ventolin 0.083% Neb 2.5 mg/3 mL Ampul] 2.5 mg NEB [id number] PRN #60 vial.neb 05/05/16 Benzonatate [Tessalon Perles 100 mg Capsule] 200 mg PO Q8 PRN #40 capsule Ciprofloxacin HCl [Cipro 500 mg Tablet] 500 mg PO BID #20 tablet 05/05/16 Dicyclomine HCl [Bentyl 20 mg Tablet] 20 mg PO QID PRN #40 tablet 05/05/16 Fluoxetine HCl [Prozac 20 mg Capsule] 40 mg PO DAILY #30 capsule 05/05/16 Nifedipine [Procardia XL 30 mg Tablet] 30 mg PO BID #60 tab.er.24 05/05/16 Prednisone [Sterapred Ds] 1 pkg PO ASDIR PRN 12 Days 05/05/16 Additional Information: Return to work in one week. History of Present Illness Patient complains of: Shortness of breath History of Present Illness: ADIN HERNANDEZ III is a 25 year old male, with history of COPD, morbid obesity, hypoventilation syndrome, chronic respiratory failure on home oxygen, has been having cough shortness of breath and wheezing intermittently for a few days percent at the emergency room because of increasing shortness of breath and worsening symptoms, where a chest x-ray revealed an infiltrate on the right. The patient was then admitted. For details please refer to history and physical examination performed by the admitting physician. Hospital Course Hospital Course: The patient was admitted to [facility]. Patient started on intravenous steroids, epjnvq-[id number] bronchodilators, and intravenous antibiotic to cover for community-acquired pneumonia. He was likewise placed on BiPAP when he rests at night. The patient improved slowly. Cultures were negative other than yeast on the sputum. With the above treatment the patient improved with time. Course was noted for elevated blood pressure initially treated with SIVAKUMAR inhibitor. He developed hyperkalemia and the patient given Kayexalate and the medication was discontinued. Potassium subsequently normalized. He was then placed on Cardizem channel sebastian with nifedipine for blood pressure control. The patient improved. Wheezing continues to improve. However the patient does not want to stay in the hospital longer and prefers to be discharged and completed treatment at home. He was advised to return to the emergency room if symptoms got worse. He was likewise the rest for at least another 5 days. Physical Exam Vital Signs: Temp Pulse Resp BP Pulse Ox 98.2 F 69 18 149/62 H 95 05/05/16 11:50 05/05/16 14:04 05/05/16 14:04 05/05/16 11:50 05/05/16 11:50 Intake & Output 05/04/16 05/05/16 05/06/16 06:59 06:59 06:59 Intake Total 1052 2490 100 Output Total 1700 975 275 Balance -648 1515 -175 Weight 198.8 kg 199.7 kg General appearance: PRESENT: no acute distress, cooperative, morbidly obese Head exam: PRESENT: normocephalic Eye exam: PRESENT: EOMI Mouth exam: PRESENT: moist, neck supple Neck exam: ABSENT: JVD Respiratory exam: PRESENT: wheezes - Minimal bilateral, other - Air entry is good. ABSENT: crackles, rhonchi Cardiovascular exam: PRESENT: RRR. ABSENT: gallop GI/Abdominal exam: PRESENT: hypoactive bowel sounds, soft. ABSENT: distended, tenderness Extremities exam: PRESENT: other - Nonpitting edema Neurological exam: PRESENT: alert, awake, oriented to person, oriented to place , oriented to time, oriented to situation Skin exam: PRESENT: dry, warm. ABSENT: cyanosis Results Laboratory Results: 05/03/16 03:52 05/04/16 03:55 05/01/16 23:15 Sputum Gram Stain - Final 05/01/16 23:15 Sputum Sputum Culture - Final C.albicans/C.dubliniensis Reduced Normal Sara Impressions: Chest X-Ray 05/01/16 12:24 IMPRESSION: Early or developing right upper lobe pneumonia Qualifiers PATEINT BEING DISCHARGED WITH ANY OF THE FOLLOWING DIAGNOSIS?: No Plan Discharge Plan: Follow-up with primary care physician in one week. Time Spent: Less than 30 Minutes
[2016-05-05 16:04] VITALS: BP 160/97
[2016-05-05] MEDS: AZITHROMYCIN 250 MG TABLET PO SCH (17:27)
[2016-05-05] MEDS: CEFTRIAXONE 1 GM/D5W RTU 1 GM/50 ML RTUPB IV SCH (17:29)
== END 2016-05-05 17:30 | disposition home or self-care (01) | DRG 189 ==
LOC: ER 12:09 → EH 16:10 → UNDOADMIN 16:56 → EH 16:56 → 3N 21:50
PROVIDERS: ADMIT Internal Medicine; ATTEND Internal Medicine
DX: J96.21 Acute and chronic respiratory failure with hypoxia (principal); J18.1 Lobar pneumonia, unspecified organism; J44.1 Chronic obstructive pulmonary disease with (acute) exacerbation; E66.2 Morbid (severe) obesity with alveolar hypoventilation; Z68.44 Body mass index [BMI] 60.0-69.9, adult; J96.22 Acute and chronic respiratory failure with hypercapnia; E87.5 Hyperkalemia; I10 Essential (primary) hypertension; F41.8 Other specified anxiety disorders; Z99.81 Dependence on supplemental oxygen; Z87.891 Personal history of nicotine dependence; Z79.51 Long term (current) use of inhaled steroids
CPT/HCPCS: 36415; 71020; 80048; 80053; 82550; 82553; 82803; 83735; 83880; 84484; 85025; 85027; 87040; 87070; 87205; 93005; 93010; 94640; 94660; 99291; J0696; J1650; J2920; J2930; J3490; J7620

== ENCOUNTER → 2016-11-01 | Outpatient (CLI) | payer MEDICAID ==
[2016-11-01 16:31] LABS: ABSOLUTE BASOPHILS # (AUTO) 0.1 10^3/uL (0.0-0.2); ABSOLUTE EOSINOPHILS # (AUTO) 0.3 10^3/uL (0.0-0.6); ABSOLUTE LYMPHOCYTES (AUTO) 1.6 10^3/uL (0.5-4.7); ABSOLUTE MONOCYTES (AUTO) 0.8 10^3/uL (0.1-1.4); ABSOLUTE NEUT (AUTO) 5.8 10^3/uL (1.7-8.2); BASOPHILS % (AUTO) 0.6 % (0-2); EOSINOPHILS % (AUTO) 3.3 % (0-6); HEMATOCRIT 47.8 % (37.9-51.0); HEMOGLOBIN 15.3 g/dL (13.5-17.0); HGB HCT DIFFERENCE -1.9; LYMPHOCYTES % (AUTO) 18.8 % (13-45); MEAN CORPUSCULAR HEMOGLOBIN 27.9 pg (27.0-33.4); MEAN CORPUSCULAR VOLUME 87 fl (80-97); MONOCYTES % (AUTO) 9.8 % (3-13); RED BLOOD COUNT 5.49 10^6/uL (4.35-5.55); RED CELL DISTRIBUTION WIDTH 16.2 % (11.5-14.0); SEGMENTED NEUTROPHILS % (AUTO) 67.5 % (42-78); WHITE BLOOD COUNT 8.6 10^3/uL (4.0-10.5)
[2016-11-01 16:51] LABS: ALANINE AMINOTRANSFERASE 46 U/L (21-72); ALBUMIN 4.2 g/dL (3.5-5.0); ALKALINE PHOSPHATASE 66 U/L (38-126); ANION GAP 7 (5-19); ASPARTATE AMINO TRANSFERASE 30 U/L (17-59); BILIRUBIN,DIRECT 0.4 mg/dL (0.0-0.4); BILIRUBIN,TOTAL 0.5 mg/dL (0.2-1.3); BLOOD UREA NITROGEN 14 mg/dL (7-20); CARBON DIOXIDE 38 mmol/L (22-30); CHLORIDE 100 mmol/L (98-107); GLUCOSE 102 mg/dL (75-110); SODIUM 144.9 mmol/L (137-145); TOTAL PROTEIN 7.5 g/dL (6.3-8.2)
== END ==
LOC: OD 15:15
PROVIDERS: ATTEND Nurse Practitioner Acute Care
DX: R10.30 Lower abdominal pain, unspecified (principal)
CPT/HCPCS: 36415; 80053; 85025

== ENCOUNTER 2016-11-09 08:41 | Inpatient (IN) | payer MEDICAID ==
[2016-11-09] MEDS ORDERED: ALBUTEROL SULFATE 0.083% NEB 2.5 MG/3 ML AMPUL NEB ONE (09:14)
[2016-11-09] MEDS ORDERED: PREDNISONE 20 MG TABLET PO ONE (09:14)
[2016-11-09] MEDS ORDERED: IPRATROPIUM/ALBUTEROL 0.5-2.5 MG/3 ML AMPUL NEB ONE ×2 (09:14→10:23)
--- NOTE | 2016-11-09 09:16 | ER Document Report ---
ED Medical Screen (RME) - General Chief Complaint: Breathing Difficulty Stated Complaint: DIFFICULTY BREATHING Time Seen by Provider: 11/09/16 09:02 Mode of Arrival: Wheelchair Information source: Patient TRAVEL OUTSIDE OF THE [place] IN LAST 30 DAYS: No - HPI Patient complains to provider of: Shortness of breath, nonproductive cough, lower abdominal pain Onset: Last week Notes: 11/09/16 09:15 Patient is a 26-year-old morbidly obese male with a history of COPD who is oxygen dependent, who continues to smoke and/or lives with 2 roommates who smoke , who presents to the emergency room this morning complaining of shortness of breath, with periods of hypoxia at home, nonproductive cough, frequent headaches , and sensation of a mass in his lower abdomen, he has been without medications for the past 2-3 months - Related Data Allergies/Adverse Reactions: No Known Allergies Allergy (Verified 11/09/16 08:54) Past Medical History - Social History Chew tobacco use (# tins/day): No Frequency of alcohol use: None Drug Abuse: None - Past Medical History Cardiac Medical History: Reports: Hx Hypertension Pulmonary Medical History: Reports: Hx Asthma, Hx COPD Renal/ Medical History: Denies: Hx Peritoneal Dialysis Psychiatric Medical History: Reports: Hx Anxiety, Hx Depression - Immunizations Hx Diphtheria, Pertussis, Tetanus Vaccination: Yes Physical Exam - Vital signs Vitals: Temp Pulse Resp BP Pulse Ox 99.0 F 94 12 152/80 H 89 L 11/09/16 08:52 11/09/16 08:52 11/09/16 08:52 11/09/16 08:52 11/09/16 08:52 Course - Vital Signs Vital signs: Temp Pulse Resp BP Pulse Ox 99.0 F 94 12 152/80 H 89 L 11/09/16 08:52 11/09/16 08:52 11/09/16 08:52 11/09/16 08:52 11/09/16 08:52
[2016-11-09 09:43] LABS: ABSOLUTE EOSINOPHILS # (AUTO) 0.2 10^3/uL (0.0-0.6); ABSOLUTE LYMPHOCYTES (AUTO) 1.1 10^3/uL (0.5-4.7); ABSOLUTE MONOCYTES (AUTO) 0.8 10^3/uL (0.1-1.4); ABSOLUTE NEUT (AUTO) 5.4 10^3/uL (1.7-8.2); BASOPHILS % (AUTO) 0.5 % (0-2); EOSINOPHILS % (AUTO) 2.6 % (0-6); HEMATOCRIT 47.6 % (37.9-51.0); HEMOGLOBIN 14.7 g/dL (13.5-17.0); HGB HCT DIFFERENCE -3.5; LYMPHOCYTES % (AUTO) 14.9 % (13-45); MEAN CORPUSCULAR HEMOGLOBIN 27.7 pg (27.0-33.4); MEAN CORPUSCULAR VOLUME 89 fl (80-97); MONOCYTES % (AUTO) 10.2 % (3-13); RED BLOOD COUNT 5.33 10^6/uL (4.35-5.55); RED CELL DISTRIBUTION WIDTH 16.4 % (11.5-14.0); SEGMENTED NEUTROPHILS % (AUTO) 71.8 % (42-78); WHITE BLOOD COUNT 7.6 10^3/uL (4.0-10.5)
[2016-11-09 09:44] LABS: VENOUS BLOOD BASE EXCESS 10.9 mmol/L; VENOUS BLOOD HCO3 43.6 mmol/L (20-32); VENOUS BLOOD PH 7.24 (7.30-7.42)
--- NOTE | 2016-11-09 09:45 | ER Document Report ---
ED Respiratory Problem - General Mode of Arrival: Wheelchair Information source: Patient TRAVEL OUTSIDE OF THE [place] IN LAST 30 DAYS: No - HPI Patient complains to provider of: Asthma, COPD, Short of breath Associated symptoms: Other - see above <PERRY OROZCO - Last Filed: 11/09/16 09:40> <DON QUINONEZ - Last Filed: 11/09/16 14:57> <CATHI CARREON - Last Filed: 11/10/16 00:16> - General Chief Complaint: Breathing Difficulty Stated Complaint: DIFFICULTY BREATHING Time Seen by Provider: 11/09/16 09:02 Notes: Patient is a 26 year old male who presents to the ED with complaints of a "stomach mass" x 1 week. Patient also has worsening dyspnea. Patient states he is normally on 2L of O2 and was suppose to turn in a prescription for 6L of O2 but lost it. Patient was going to [facility] but received Medicaid and and is now seen at [facility] but is looking for a new PCM. Patient states on 2L he normally runs in the 80s. Patient states the swelling in his lower extremities is worse than baseline. (PERRY OROZCO) - Related Data Allergies/Adverse Reactions: No Known Allergies Allergy (Verified 11/09/16 08:54) Home Medications: Current Home Medications Cephalexin [Cephalexin 500 MG Capsule] 1 cap PO QID 11/09/16 [History] Past Medical History - General Information source: Patient - Social History Smoking Status: Former Smoker Chew tobacco use (# tins/day): No Frequency of alcohol use: None Drug Abuse: None Family History: Reviewed & Not Pertinent - Past Medical History Cardiac Medical History: Reports: Hx Hypertension Pulmonary Medical History: Reports: Hx Asthma, Hx COPD Renal/ Medical History: Denies: Hx Peritoneal Dialysis Psychiatric Medical History: Reports: Hx Anxiety, Hx Depression - Immunizations Hx Diphtheria, Pertussis, Tetanus Vaccination: Yes <PERRY OROZCO - Last Filed: 11/09/16 09:40> Review of Systems - Review of Systems Constitutional: No symptoms reported EENT: No symptoms reported Cardiovascular: No symptoms reported Respiratory: See HPI, Short of breath Gastrointestinal: See HPI, Other - "stomach mass" Genitourinary: No symptoms reported Male Genitourinary: No symptoms reported Musculoskeletal: See HPI, Leg swelling Skin: No symptoms reported Hematologic/Lymphatic: No symptoms reported Neurological/Psychological: No symptoms reported <PAMPERRY - Last Filed: 11/09/16 09:40> Physical Exam - General General appearance: Alert - HEENT Head: Normocephalic, Atraumatic Eyes: Normal Extraocular movements intact: Yes Pupils: PERRL - Respiratory Respiratory status: No respiratory distress, Other - during exam patient was receiving a breathing treatment with wall air, no supplemental oxygen, 88% Breath sounds: Wheezing - Cardiovascular Rhythm: Regular Heart sounds: Normal auscultation Murmur: No - Abdominal Inspection: Morbidly Obese, Other - see skin irregularity exam Tenderness: Nontender - Back Back: Normal - Extremities General upper extremity: Normal inspection, Normal ROM General lower extremity: Edema - 2+ pitting, Normal ROM - Neurological Neuro grossly intact: Yes - Psychological Associated symptoms: Normal affect, Normal mood - Skin Skin Temperature: Warm Skin Moisture: Dry Skin Color: Normal Skin irregularity: other - lower abodmen panus is thickened, erythemtous, edemetous and tender when squeezing it <PERRY OROZCO - Last Filed: 11/09/16 09:40> - Vital signs Vitals: Temp Pulse Resp BP Pulse Ox 99.0 F 94 12 152/80 H 89 L 11/09/16 08:52 11/09/16 08:52 11/09/16 08:52 11/09/16 08:52 11/09/16 08:52 Course - Laboratory Result Diagrams: 11/09/16 09:30 11/09/16 09:30 <PERRY OROZCO - Last Filed: 11/09/16 09:40> - Laboratory Result Diagrams: 11/09/16 09:30 11/09/16 09:30 - Diagnostic Test Radiology reviewed: Image reviewed, Reports reviewed - Chest x-ray shows cardiomegaly with pulmonary vascular congestion without overt heart failure - EKG Interpretation by Me EKG shows normal: Sinus rhythm, Welling, Intervals, QRS Complexes, ST-T Waves Rate: Normal - 81 Rhythm: NSR Welling/QRS: LPHB/LPFB When compared to previous EKG there are: No significant change - Consults Hotaling Time consulted: 14:40 Consulted provider: will come to ER <DON QUINONEZ - Last Filed: 11/09/16 14:57> - Laboratory Result Diagrams: 11/09/16 09:30 11/09/16 09:30 <CATHI CARREON - Last Filed: 11/10/16 00:16> - Vital Signs Vital signs: Temp Pulse Resp BP Pulse Ox 99.0 F 94 11 L 160/101 H 89 L 11/09/16 08:52 11/09/16 08:52 11/09/16 16:01 11/09/16 16:01 11/09/16 16:01 - Laboratory Laboratory results interpreted by me: 11/09/16 11/09/16 11/09/16 09:30 09:30 09:30 MCHC 31.0 L RDW 16.4 H Carbonic Acid ABG pH ABG pCO2 ABG pO2 ABG HCO3 ABG Total CO2 ABG O2 Saturation VBG pH 7.24 L VBG pCO2 103.4 H* VBG HCO3 43.6 H Chloride 95 L Carbon Dioxide 42 H* Creatine Kinase 11/09/16 11/09/16 09:30 12:57 MCHC RDW Carbonic Acid 2.32 H ABG pH 7.28 L ABG pCO2 77.1 H* ABG pO2 62.4 L ABG HCO3 35.4 H ABG Total CO2 37.8 H ABG O2 Saturation 88.0 L VBG pH VBG pCO2 VBG HCO3 Chloride Carbon Dioxide Creatine Kinase 39 L Critical Care Note - Critical Care Note Total time excluding time spent on procedures (mins): 35 <DON QUINONEZ - Last Filed: 11/09/16 14:57> Discharge <PERRY OROZCO - Last Filed: 11/09/16 09:40> - Discharge Admitting Provider: Hospitalist Unit Admitted: Telemetry <DON QUINONEZ - Last Filed: 11/09/16 14:57> <CATHI CARREON - Last Filed: 11/10/16 00:16> - Discharge Clinical Impression: CO2 retention Cellulitis of trunk Qualifiers: Site of cellulitis of trunk: abdominal wall Qualified Code(s): L03.311 - Cellulitis of abdominal wall Edema Qualifiers: Edema type: generalized Qualified Code(s): R60.1 - Generalized edema COPD (chronic obstructive pulmonary disease) Qualifiers: COPD type: unspecified COPD Qualified Code(s): J44.9 - Chronic obstructive pulmonary disease, unspecified Hypertension Qualifiers: Hypertension type: essential hypertension Qualified Code(s): I10 - Essential ( primary) hypertension Condition: Fair Disposition: AGAINST MEDICAL ADVICE Scribe Attestation: 11/09/16 10:11 I personally performed the services described in the documentation, reviewed and edited the documentation which was dictated to the scribe in my presence, and it accurately records my words and actions. (DON QUINONEZ) Scribe Documentation - Scribe Written by Adarsh:: adarsh Souza, 11/09/2016, [id number] acting as scribe for :: Tammy <PERRY OROZCO - Last Filed: 11/09/16 09:40>
[2016-11-09] MEDS ORDERED: LEVOTHYROXINE SODIUM 0.025 MG TABLET PO ONE (09:57)
[2016-11-09] MEDS ORDERED: LEVOTHYROXINE SODIUM 0.1 MG TABLET PO ONE (09:57)
[2016-11-09 09:58] LABS: VENOUS BLOOD PCO2 103.4 mmHg (35-63)
[2016-11-09] MEDS ORDERED: FUROSEMIDE 20 MG TABLET PO ONE (09:58)
[2016-11-09] MEDS ORDERED: LISINOPRIL 10 MG TABLET PO ONE (09:58)
[2016-11-09 10:07] LABS: ALANINE AMINOTRANSFERASE 32 U/L (21-72); ALBUMIN 4.1 g/dL (3.5-5.0); ALKALINE PHOSPHATASE 64 U/L (38-126); ASPARTATE AMINO TRANSFERASE 24 U/L (17-59); BILIRUBIN,DIRECT 0.4 mg/dL (0.0-0.4); BILIRUBIN,TOTAL 0.5 mg/dL (0.2-1.3); BLOOD UREA NITROGEN 16 mg/dL (7-20); CALCIUM 9.5 mg/dL (8.4-10.2); CHLORIDE 95 mmol/L (98-107); CREATININE RESULT 0.79 mg/dL (0.52-1.25); GLUCOSE 107 mg/dL (75-110); POTASSIUM 4.3 mmol/L (3.6-5.0); SODIUM 144.8 mmol/L (137-145); TOTAL PROTEIN 7.6 g/dL (6.3-8.2)
[2016-11-09 10:15] LABS: ANION GAP 8 (5-19)
[2016-11-09 10:16] LABS: CARBON DIOXIDE 42 mmol/L (22-30)
[2016-11-09 10:39] LABS: ADD ON TESTING BLD IN LAB ACKNOWLEDGE
--- NOTE | 2016-11-09 10:55 | RADIOLOGY REPORT (SQ) ---
EXAM DESCRIPTION: CHEST PA/LAT COMPLETED DATE/TIME: 11/09/2016 10:43 am REASON FOR STUDY: db COMPARISON: 05/01/2016 EXAM PARAMETERS: NUMBER OF VIEWS: two views TECHNIQUE: Digital Frontal and Lateral radiographic views of the chest acquired. RADIATION DOSE: NA LIMITATIONS: none FINDINGS: LUNGS AND PLEURA: Pulmonary vascular congestion. No jaylen pulmonary edema. No localized infiltrate or effusion. MEDIASTINUM AND HILAR STRUCTURES: No masses or contour abnormalities. HEART AND VASCULAR STRUCTURES: Heart size is borderline. There is pulmonary vascular congestion but no jaylen CHF. BONES: No acute findings. HARDWARE: None in the chest. OTHER: No other significant finding. IMPRESSION: Cardiomegaly with pulmonary vascular congestion but no jaylen CHF. TECHNICAL DOCUMENTATION: JOB ID: [id number] [employer]- All Rights Reserved
[2016-11-09 11:13] LABS: CREATINE KINASE 39 U/L (55-170)
[2016-11-09 11:37] LABS: TROPONIN I 0.014 ng/mL
[2016-11-09 12:39] LABS: APPEARANCE,URINE CLEAR; BILIRUBIN,URINE NEGATIVE (NEGATIVE); GLUCOSE, URINE NEGATIVE (NEGATIVE); KETONES,URINE NEGATIVE (NEGATIVE); LEUKOCYTE ESTERASE,URINE NEGATIVE (NEGATIVE); NITRITE,URINE NEGATIVE (NEGATIVE); PROTEIN,URINE NEGATIVE (NEGATIVE); URINE SPECIFIC GRAVITY 1.013; UROBILINOGEN,URINE NEGATIVE mg/dL (<2.0)
[2016-11-09 12:54] LABS: URINE BARBITURATES SCREEN NEGATIVE; URINE METHADONE SCREEN NEGATIVE; URINE OPIATES LOW NEGATIVE; URINE PHENCYCLIDINE SCREEN NEGATIVE
[2016-11-09 13:23] LABS: ARTERIAL BLOOD BASE EXCESS 5.4 mmol/L
--- NOTE | 2016-11-09 13:44 | EKG REPORT ---
SEVERITY:- ABNORMAL ECG - SINUS RHYTHM LEFT POSTERIOR FASCICULAR BLOCK : Confirmed by: Salazar Marroquin MD 09-Nov-2016 13:43:11
[2016-11-09] MEDS ORDERED: MAGNESIUM HYDROXIDE SUSP 30 ML UDCUP PO PRN (14:54)
[2016-11-09] MEDS ORDERED: OXYCODONE-ACETAMINOPHEN 5-325 MG TABLET PO PRN (14:54)
[2016-11-09] MEDS ORDERED: ONDANSETRON HCL INJ/PF 4 MG/2 ML SDV IV PRN (14:54)
[2016-11-09] MEDS ORDERED: ACETAMINOPHEN 325 MG TABLET PO PRN (14:54)
[2016-11-09] MEDS ORDERED: DICYCLOMINE HCL 20 MG TABLET PO PRN (14:58)
[2016-11-09] MEDS ORDERED: FUROSEMIDE INJ/PF 40 MG/4 ML SDV IV ONE (15:03)
[2016-11-09 16:36] VITALS: BP 160/101
--- NOTE | 2016-11-09 16:48 | PDOC H&P ---
History of Present Illness Admission Date/PCP: 11/09/16 15:53 Patient complains of: Increasing shortness of breath, and redness of abdominal skin History of Present Illness: Patient is a 26 year old male who presents to the [facility] ED with complaints of a "stomach mass" x 1 week which is worsening. Patient also has worsening dyspnea. Patient states he is normally on 2L of O2 and was suppose to turn in a prescription for 6L of O2 but lost it. Patient was going to [facility] but received Medicaid and and is now seen at [facility] but is looking for a new primary care provider. Patient states on 2L he normally runs in the 80s. Patient states the swelling in his lower extremities is worse than baseline. He denies any fevers or chills. He denies any active cough. He does carry a history of COPD and wears oxygen 2 L/min continuously. He continues to smoke 1-2 packs of cigarettes per day as well. Past Medical History Cardiac Medical History: Reports: Hypertension Pulmonary Medical History: Reports: Asthma, Chronic Obstructive Pulmonary Disease (COPD) EENT Medical History: Reports: None Neurological Medical History: Reports: None Endocrine Medical History: Reports: None Renal/ Medical History: Reports: None Malignancy Medical History: Reports: None GI Medical History: Reports: None Musculoskeltal Medical History: Reports: None Skin Medical History: Reports: None Psychiatric Medical History: Reports: Depression, Tobacco Dependency Traumatic Medical History: Reports: None Hematology: Reports: None Infectious Medical History: Reports: None Past Surgical History Past Surgical History: Reports: None Social History Information Source: Patient Lives with: Alone Smoking Status: Current Every Day Smoker Cigarettes Packs Per Day: 2 Frequency of Alcohol Use: None Hx Recreational Drug Use: No Drugs: None Hx Prescription Drug Abuse: No - Advance Directive Resuscitation Status: Full Code Family History Family History: DM, Hypertension Parental Family History Reviewed: Yes Children Family History Reviewed: NA Sibling(s) Family History Reviewed.: Yes Medication/Allergy Home Medications: Albuterol Sulfate [Proair HFA Inhalation Aerosol 8.5 gm MDI] 2 puff IH Q4HP PRN #1 hfa.aer.ad 05/05/16 Albuterol Sulfate [Ventolin 0.083% Neb 2.5 mg/3 mL Ampul] 2.5 mg NEB [id number] PRN #60 vial.neb 05/05/16 Dicyclomine HCl [Bentyl 20 mg Tablet] 20 mg PO QID PRN #40 tablet 05/05/16 Fluoxetine HCl [Prozac 20 mg Capsule] 40 mg PO DAILY #30 capsule 05/05/16 Nifedipine [Procardia XL 30 mg Tablet] 30 mg PO BID #60 tab.er.24 05/05/16 Cephalexin [Cephalexin 500 MG Capsule] 1 cap PO QID 11/09/16 Allergies/Adverse Reactions: No Known Allergies Allergy (Verified 11/09/16 08:54) Review of Systems Constitutional: ABSENT: chills, fever(s), headache(s), weight gain, weight loss Eyes: ABSENT: visual disturbances Ears: ABSENT: hearing changes Cardiovascular: PRESENT: dyspnea on exertion, orthropnea. ABSENT: chest pain, edema, palpitations Respiratory: PRESENT: dyspnea, other. ABSENT: cough, hemoptysis Gastrointestinal: ABSENT: abdominal pain, constipation, diarrhea, hematemesis, hematochezia, nausea, vomiting Genitourinary: ABSENT: dysuria, hematuria Musculoskeletal: ABSENT: joint swelling Integumentary: PRESENT: erythema, other - abdominal pannus Neurological: ABSENT: abnormal gait, abnormal speech, confusion, dizziness, focal weakness, syncope Psychiatric: ABSENT: anxiety, depression, homidical ideation, suicidal ideation Endocrine: ABSENT: cold intolerance, heat intolerance, polydipsia, polyuria Hematologic/Lymphatic: ABSENT: easy bleeding, easy bruising Physical Exam Vital Signs: Temp Pulse Resp BP Pulse Ox 99.0 F 94 11 L 160/101 H 89 L 11/09/16 08:52 11/09/16 08:52 11/09/16 16:01 11/09/16 16:01 11/09/16 16:01 General appearance: PRESENT: no acute distress, morbidly obese, well-developed, well-nourished Head exam: PRESENT: atraumatic, normocephalic Eye exam: PRESENT: conjunctiva pink, EOMI, PERRLA. ABSENT: scleral icterus Ear exam: PRESENT: normal external ear exam Mouth exam: PRESENT: moist, tongue midline Neck exam: ABSENT: carotid bruit, JVD, lymphadenopathy, thyromegaly Respiratory exam: PRESENT: rales, symmetrical, unlabored Cardiovascular exam: PRESENT: RRR, +S1, +S2. ABSENT: diastolic murmur, rubs, systolic murmur Pulses: PRESENT: normal carotid pulses, normal radial pulses Vascular exam: PRESENT: normal capillary refill GI/Abdominal exam: PRESENT: normal bowel sounds, soft. ABSENT: distended, guarding, mass, organolmegaly, rebound, tenderness Rectal exam: PRESENT: deferred Extremities exam: PRESENT: full ROM, +2 edema Musculoskeletal exam: PRESENT: ambulatory Neurological exam: PRESENT: alert, awake, oriented to person, oriented to place , oriented to time, oriented to situation, CN II-XII grossly intact. ABSENT: motor sensory deficit Psychiatric exam: PRESENT: appropriate affect, normal mood. ABSENT: homicidal ideation, suicidal ideation Skin exam: PRESENT: dry, intact, warm. ABSENT: cyanosis, rash Results Impressions: Chest X-Ray 11/09/16 09:14 IMPRESSION: Cardiomegaly with pulmonary vascular congestion but no jaylen CHF. Assessment & Plan - Diagnosis (1) Acute and chronic respiratory failure with hypercapnia Is this a current diagnosis for this admission?: Yes Plan: Patient is on BiPAP due to ABG signs CO2 of 77 mmHg per. Started on IV steroids and nebulizer treatments. Also given IV Lasix. (2) CO2 retention Is this a current diagnosis for this admission?: Yes Plan: As above. (3) Cellulitis of trunk Qualifiers: Site of cellulitis of trunk: abdominal wall Qualified Code(s): L03.311 - Cellulitis of abdominal wall Is this a current diagnosis for this admission?: Yes Plan: We will start patient on broad-spectrum IV antibiotics for typical skin pathogens and MRSA. (4) Hypertension Qualifiers: Hypertension type: essential hypertension Qualified Code(s): I10 - Essential (primary) hypertension Plan: Continue home medications and as needed hydralazine. (5) Morbid obesity Is this a current diagnosis for this admission?: Yes Plan: Counseled - Time Time Spent: 50 to 70 Minutes Critical Time spent with patient: 25-34 minutes Smoking Cessation Education: 3 to 10 minutes Medications reviewed and adjusted accordingly: Yes
--- NOTE | 2016-11-09 16:50 | PDOC DISCHARGE SUMMARY ---
General - Admit/Disc Date/PCP Admission Date/Primary Care Provider: 11/09/16 15:53 Discharge Date: 11/09/16 - Discharge Diagnosis (1) Acute and chronic respiratory failure with hypercapnia Is this a current diagnosis for this admission?: Yes (2) CO2 retention Is this a current diagnosis for this admission?: Yes (3) Cellulitis of trunk Is this a current diagnosis for this admission?: Yes (5) Morbid obesity Is this a current diagnosis for this admission?: Yes - Additional Information Resuscitation Status: Full Code Home Medications: Albuterol Sulfate [Proair HFA Inhalation Aerosol 8.5 gm MDI] 2 puff IH Q4HP PRN #1 hfa.aer.ad 05/05/16 Albuterol Sulfate [Ventolin 0.083% Neb 2.5 mg/3 mL Ampul] 2.5 mg NEB [id number] PRN #60 vial.neb 05/05/16 Dicyclomine HCl [Bentyl 20 mg Tablet] 20 mg PO QID PRN #40 tablet 05/05/16 Fluoxetine HCl [Prozac 20 mg Capsule] 40 mg PO DAILY #30 capsule 05/05/16 Nifedipine [Procardia XL 30 mg Tablet] 30 mg PO BID #60 tab.er.24 05/05/16 Cephalexin [Cephalexin 500 MG Capsule] 1 cap PO QID 11/09/16 History of Present Illness History of Present Illness: Patient is a 26 year old male who [facility] with complaints of a "stomach mass" x 1 week which is worsening. Patient also has worsening dyspnea. Patient states he is normally on 2L of O2 and was suppose to turn in a prescription for 6L of O2 but lost it. Patient was going to [facility] but received Medicaid and and is now seen at [facility] but is looking for a new primary care provider. Patient states on 2L he normally runs in the 80s. Patient states the swelling in his lower extremities is worse than baseline. He denies any fevers or chills. He denies any active cough. He does carry a history of COPD and wears oxygen 2 L/min continuously. He continues to smoke 1-2 packs of cigarettes per day as well. Hospital Course Hospital Course: Patient prior to being admitted into the hospital from the emergency room decided he needed to leave and go home. He states he has his landlord's dogs he is taking care of for the next several days. He needs to make arrangements for the dogs and cannot do this over the phone. He states most likely he will return later this evening. He was given the AGAINST MEDICAL ADVICE paper by his nurse. He is alert oriented and intact 3. Patient was discharged AMA. Physical Exam Vital Signs: Temp Pulse Resp BP Pulse Ox 99.0 F 94 11 L 160/101 H 89 L 11/09/16 08:52 11/09/16 08:52 11/09/16 16:01 11/09/16 16:01 11/09/16 16:01 Results Impressions: Chest X-Ray 11/09/16 09:14 IMPRESSION: Cardiomegaly with pulmonary vascular congestion but no jaylen CHF.
[2016-11-09] MEDS: ALBUTEROL SULFATE 0.083% NEB 2.5 MG/3 ML AMPUL NEB PRN ×2 (17:06→21:29)
[2016-11-09] MEDS ORDERED: NIFEDIPINE 30 MG TAB.ER.24 PO SCH (18:00)
[2016-11-09] MEDS ORDERED: FAMOTIDINE 20 MG TABLET PO SCH (22:00)
[2016-11-09] MEDS ORDERED: METHYLPREDNISOLONE INJ 125 MG/2 ML SDV IV SCH (22:00)
[2016-11-09] MEDS ORDERED: FUROSEMIDE INJ/PF 40 MG/4 ML SDV IV SCH (22:00)
[2016-11-10 04:02] LABS: ABSOLUTE LYMPHOCYTES (AUTO) 0.6 10^3/uL (0.5-4.7); ABSOLUTE MONOCYTES (AUTO) 0.3 10^3/uL (0.1-1.4); ABSOLUTE NEUT (AUTO) 9.6 10^3/uL (1.7-8.2); BASOPHILS % (AUTO) 0.3 % (0-2); EOSINOPHILS % (AUTO) 0.1 % (0-6); HEMATOCRIT 48.8 % (37.9-51.0); HEMOGLOBIN 15.8 g/dL (13.5-17.0); HGB HCT DIFFERENCE -1.4; LYMPHOCYTES % (AUTO) 5.7 % (13-45); MEAN CORPUSCULAR HEMOGLOBIN 28.3 pg (27.0-33.4); MEAN CORPUSCULAR HGB CONC 32.3 g/dL (32.0-36.0); MEAN CORPUSCULAR VOLUME 88 fl (80-97); MONOCYTES % (AUTO) 2.4 % (3-13); RED BLOOD COUNT 5.57 10^6/uL (4.35-5.55); RED CELL DISTRIBUTION WIDTH 16.5 % (11.5-14.0); SEGMENTED NEUTROPHILS % (AUTO) 91.5 % (42-78); WHITE BLOOD COUNT 10.5 10^3/uL (4.0-10.5)
[2016-11-10 04:28] LABS: BLOOD UREA NITROGEN 22 mg/dL (7-20); CALCIUM 9.4 mg/dL (8.4-10.2); CHLORIDE 96 mmol/L (98-107); GLUCOSE 145 mg/dL (75-110); MAGNESIUM 2.4 mg/dL (1.6-2.3); POTASSIUM 5.7 mmol/L (3.6-5.0); SODIUM 142.1 mmol/L (137-145)
[2016-11-10 04:40] LABS: ANION GAP 8 (5-19); CARBON DIOXIDE 38 mmol/L (22-30)
[2016-11-10] MEDS ORDERED: ENOXAPARIN SODIUM INJ 40 MG/0.4 ML DISP.SYRIN SUBCUT SCH (10:00)
[2016-11-10] MEDS ORDERED: FLUOXETINE HCL 20 MG CAPSULE PO SCH (10:00)
[2016-11-10] MEDS ORDERED: DOCUSATE SODIUM 100 MG CAPSULE PO SCH (10:00)
[2016-11-10] MEDS ORDERED: PREDNISONE 20 MG TABLET PO SCH (16:15)
[2016-11-10] MEDS ORDERED: NYSTATIN TOPICAL POWDER 15 GM TP SCH (16:15)
== END 2016-11-09 16:29 | disposition left against medical advice (07) | DRG 189 ==
LOC: ER 08:41 → EH 14:54 → UNDOADMIN 14:54 → EH 15:53 → ER 16:29 → ICU 11-10 01:53 → EH 11-10 01:53 → ICU 11-10 02:20 → EH 11-10 02:21
PROVIDERS: ADMIT Family Medicine; ATTEND Family Medicine
DX: J96.22 Acute and chronic respiratory failure with hypercapnia (principal); L03.311 Cellulitis of abdominal wall; Z68.45 Body mass index [BMI] 70 or greater, adult; J44.9 Chronic obstructive pulmonary disease, unspecified; I10 Essential (primary) hypertension; E66.01 Morbid (severe) obesity due to excess calories; Z79.899 Other long term (current) drug therapy; F17.210 Nicotine dependence, cigarettes, uncomplicated
CPT/HCPCS: 36415; 71020; 80048; 80053; 80307; 81001; 82550; 82803; 83735; 83880; 84484; 85025; 93005; 93010; 94640; 94660; 99291; J7512; J7620

== ENCOUNTER 2016-11-09 22:22 | Inpatient (IN) | payer MEDICAID ==
[2016-11-09] MEDS ORDERED: IPRATROPIUM/ALBUTEROL 0.5-2.5 MG/3 ML AMPUL NEB ONE (22:25)
[2016-11-09] MEDS ORDERED: METHYLPREDNISOLONE INJ 40 MG/1 ML SDV IV ONE (22:26)
--- NOTE | 2016-11-09 22:26 | ER Document Report ---
ED Respiratory Problem - General Mode of Arrival: Medic Information source: Patient TRAVEL OUTSIDE OF THE [place] IN LAST 30 DAYS: No - HPI Onset: Other - Refer to HPI notes Similar symptoms previously: Yes Recently seen / treated by doctor: Yes <CATHI CARREON - Last Filed: 11/10/16 03:10> <CATALINA STAUFFER - Last Filed: 11/10/16 06:12> - General Stated Complaint: DIFFICULTY BREATHING Time Seen by Provider: 11/09/16 22:24 Notes: Patient is a 26 year old male presenting to the emergency department for dyspnea. Patient was seen this morning around 9:00 and was admitted to the hospitalist service for respiratory distress. Patient left to check on his roommate's pets and has returned to be admitted. Patient states he is fully cooperative. Patient is normally on 2L O2. PCP is [facility]. Patient also has lower extremity swelling. Patient has no known drug allergies. (CATHI CARREON) - Related Data Allergies/Adverse Reactions: No Known Allergies Allergy (Verified 11/09/16 08:54) Past Medical History - General Information source: Patient - Social History Smoking Status: Unknown if Ever Smoked Family History: DM, Hypertension Patient has suicidal ideation: No Patient has homicidal ideation: No - Past Medical History Cardiac Medical History: Reports: Hx Hypertension Pulmonary Medical History: Reports: Hx Asthma, Hx COPD Psychiatric Medical History: Reports: Hx Anxiety, Hx Depression Surgical Hx: Negative - Immunizations Hx Diphtheria, Pertussis, Tetanus Vaccination: Yes <CATHI CARREON - Last Filed: 11/10/16 03:10> Review of Systems - Review of Systems Constitutional: No symptoms reported EENT: No symptoms reported Cardiovascular: No symptoms reported Respiratory: See HPI, Short of breath Gastrointestinal: See HPI Genitourinary: No symptoms reported Male Genitourinary: No symptoms reported Musculoskeletal: See HPI, Leg swelling Skin: No symptoms reported Hematologic/Lymphatic: No symptoms reported Neurological/Psychological: No symptoms reported -: Yes All other systems reviewed and negative <CATHI CARREON - Last Filed: 11/10/16 03:10> Physical Exam <CATHI CARREON - Last Filed: 11/10/16 03:10> <CATALINA STAUFFER - Last Filed: 11/10/16 06:12> - Vital signs Vitals: Pulse Ox 88 L 11/09/16 22:23 - Notes Notes: GENERAL: Alert, interacts well. No acute distress. HEAD: Normocephalic, atraumatic. EYES: Appear normal. Pupils equal, round, and reactive to light. ENT: Moist mucus membranes, tongue midline. NECK: Full range of motion. Supple. Trachea midline. LUNGS: Wheezing bilaterally. No respiratory distress. HEART: Regular rate and rhythm. No murmurs, gallops, or rubs. ABDOMEN: Morbidly obese. Soft, non-tender. Non-distended. Normal bowel sounds. EXTREMITIES: Moves all 4 extremities spontaneously. Normal strength. No edema. NEUROLOGICAL: Alert and oriented x3. Normal speech. No focal neurological deficits. GSC 15. PSYCH: Normal affect, normal mood. SKIN: Warm, dry, normal turgor. No rashes or lesions noted. (CATHI CARREON) Course - Laboratory Result Diagrams: 11/09/16 22:35 11/09/16 22:35 - Consults Dr. Curry Time consulted: 23:14 <CATHI CARREON - Last Filed: 11/10/16 03:10> - Laboratory Result Diagrams: 11/09/16 22:35 11/09/16 22:35 <CATALINA STAUFFER - Last Filed: 11/10/16 06:12> - Re-evaluation Re-evalutation: 11/09 Patient is a 26-year-old male who is morbidly obese presenting with wheezing. Patient's initial oxygen saturation for EMS was in the 70s. Patient has been given nebulizer treatments and magnesium here. Patient was seen earlier in the day and left AGAINST MEDICAL ADVICE because he had to take care of dogs. This outpatient management has failed. Patient given repeat dose of Solu-Medrol at 40 mg. Patient still has some CO2 retention although improved from earlier today, patient will still need to be admitted to the hospital at this time. Understands and agrees with plan. Stable at time of admission. (CATALINA STAUFFER) - Vital Signs Vital signs: Temp Pulse Resp BP Pulse Ox 98.8 F 85 23 H 161/106 H 90 L 11/10/16 02:00 11/10/16 02:00 11/10/16 06:00 11/10/16 05:11/10/16 06:00 - Laboratory Laboratory results interpreted by me: 11/09/16 11/09/16 11/09/16 22:35 22:35 22:35 WBC 10.8 H MCHC 31.0 L RDW 16.7 H Seg Neutrophils % 81.1 H Lymphocytes % 9.6 L Absolute Neutrophils 8.7 H VBG pCO2 86.4 H* VBG HCO3 42.3 H Sodium 145.9 H Carbon Dioxide 39 H Glucose 127 H - Consults Dr. Curry Reason for consultation: 11/09/16 23:[address] Curry to discuss patient; he will admit the patient. (CATHI CARREON) Discharge <CATHI CARREON - Last Filed: 11/10/16 03:10> - Discharge Admitting Provider: Flor Curry Unit Admitted: IMCU <CATALINA STAUFFER - Last Filed: 11/10/16 06:12> - Discharge Clinical Impression: Hypercapnia, COPD with acute exacerbation Condition: Stable Disposition: ADMITTED INPATIENT Scribe Attestation: 11/10/16 06:12 I personally performed the services described in the documentation, reviewed and edited the documentation which was dictated to the scribe in my presence, and it accurately records my words and actions. (CATALINA STAUFFER) Scribe Documentation - Scribe Written by Liberty:: Liberty Smith 11/09/16 23:38 acting as scribe for :: Mesfin <CATHI CARREON - Last Filed: 11/10/16 03:10>
[2016-11-09 23:00] LABS: ABSOLUTE MONOCYTES (AUTO) 0.9 10^3/uL (0.1-1.4); ABSOLUTE NEUT (AUTO) 8.7 10^3/uL (1.7-8.2); BASOPHILS % (AUTO) 0.4 % (0-2); EOSINOPHILS % (AUTO) 0.3 % (0-6); HEMATOCRIT 48.7 % (37.9-51.0); HEMOGLOBIN 15.1 g/dL (13.5-17.0); HGB HCT DIFFERENCE -3.4; LYMPHOCYTES % (AUTO) 9.6 % (13-45); MEAN CORPUSCULAR HEMOGLOBIN 27.6 pg (27.0-33.4); MEAN CORPUSCULAR VOLUME 89 fl (80-97); MONOCYTES % (AUTO) 8.6 % (3-13); RED BLOOD COUNT 5.47 10^6/uL (4.35-5.55); RED CELL DISTRIBUTION WIDTH 16.7 % (11.5-14.0); SEGMENTED NEUTROPHILS % (AUTO) 81.1 % (42-78); WHITE BLOOD COUNT 10.8 10^3/uL (4.0-10.5)
[2016-11-09 23:07] LABS: VENOUS BLOOD BASE EXCESS 11.4 mmol/L; VENOUS BLOOD HCO3 42.3 mmol/L (20-32); VENOUS BLOOD PH 7.31 (7.30-7.42)
[2016-11-09 23:10] LABS: VENOUS BLOOD PCO2 86.4 mmHg (35-63)
[2016-11-09 23:15] LABS: ALANINE AMINOTRANSFERASE 38 U/L (21-72); ALBUMIN 4.3 g/dL (3.5-5.0); ALKALINE PHOSPHATASE 63 U/L (38-126); ANION GAP 9 (5-19); ASPARTATE AMINO TRANSFERASE 25 U/L (17-59); BILIRUBIN,DIRECT 0.4 mg/dL (0.0-0.4); BILIRUBIN,TOTAL 0.5 mg/dL (0.2-1.3); BLOOD UREA NITROGEN 20 mg/dL (7-20); CALCIUM 9.6 mg/dL (8.4-10.2); CARBON DIOXIDE 39 mmol/L (22-30); CHLORIDE 98 mmol/L (98-107); CREATININE RESULT 0.94 mg/dL (0.52-1.25); GLUCOSE 127 mg/dL (75-110); SODIUM 145.9 mmol/L (137-145); TOTAL PROTEIN 7.7 g/dL (6.3-8.2)
[2016-11-09] MEDS ORDERED: IPRATROPIUM/ALBUTEROL 0.5-2.5 MG/3 ML AMPUL NEB PRN (23:21)
[2016-11-09] MEDS ORDERED: MAG HYDROX/AL HYDROX/SIMETH SUSP 30 ML UDCUP PO PRN (23:21)
[2016-11-09] MEDS ORDERED: MAGNESIUM HYDROXIDE SUSP 30 ML UDCUP PO PRN (23:21)
[2016-11-09] MEDS ORDERED: FUROSEMIDE INJ/PF 40 MG/4 ML SDV IV ONE (23:21)
[2016-11-09] MEDS ORDERED: DICYCLOMINE HCL 20 MG TABLET PO PRN (23:26)
[2016-11-09] MEDS: MAGNESIUM SULFATE/D5W 1 GM/100 ML RTUPB IV SCH ×2 (23:35→23:37)
[2016-11-10] LABS: MAGNESIUM 1.9 mg/dL (1.6-2.3); PHOSPHORUS 3.9 mg/dL (2.5-4.5)
[2016-11-10 00:56] LABS: APPEARANCE,URINE CLEAR; BILIRUBIN,URINE NEGATIVE (NEGATIVE); GLUCOSE, URINE NEGATIVE (NEGATIVE); KETONES,URINE NEGATIVE (NEGATIVE); LEUKOCYTE ESTERASE,URINE NEGATIVE (NEGATIVE); NITRITE,URINE NEGATIVE (NEGATIVE); PROTEIN,URINE NEGATIVE (NEGATIVE); UROBILINOGEN,URINE NEGATIVE mg/dL (<2.0)
[2016-11-10] MEDS ORDERED: HYDRALAZINE HCL INJ/PF 20 MG/1 ML SDV IV PRN (04:19)
--- NOTE | 2016-11-10 04:28 | PDOC H&P ---
History of Present Illness Admission Date/PCP: 11/09/16 23:21 Patient complains of: Shortness of breath History of Present Illness: ADIN HERNANDEZ III is a 26 year old male with a past medical history of hypertension, morbid obesity, BMI greater than 70, apparent continuous oxygen dependence, tobacco dependence and obstructive sleep apnea. Presents to the emergency room earlier in the day but leaves AMA for social reasons only to return to the emergency department with hypercapnia. He started on BiPAP and referred to the hospitalist for admission. He denies fever chills nausea vomiting rhinorrhea or cough. Past Medical History Cardiac Medical History: Reports: Hypertension Pulmonary Medical History: Reports: Asthma, Chronic Obstructive Pulmonary Disease (COPD) Psychiatric Medical History: Reports: Depression, Tobacco Dependency Social History Information Source: Patient Smoking Status: Current Some Day Smoker Frequency of Alcohol Use: Rare Hx Recreational Drug Use: No Drugs: None Hx Prescription Drug Abuse: No - Advance Directive Resuscitation Status: Full Code Family History Family History: DM, Hypertension Parental Family History Reviewed: Yes Children Family History Reviewed: Yes Sibling(s) Family History Reviewed.: Yes Medication/Allergy Home Medications: Albuterol Sulfate [Proair HFA Inhalation Aerosol 8.5 gm MDI] 2 puff IH Q4HP PRN #1 hfa.aer.ad 05/05/16 Albuterol Sulfate [Ventolin 0.083% Neb 2.5 mg/3 mL Ampul] 2.5 mg NEB [id number] PRN #60 vial.neb 05/05/16 Dicyclomine HCl [Bentyl 20 mg Tablet] 20 mg PO QID PRN #40 tablet 05/05/16 Fluoxetine HCl [Prozac 20 mg Capsule] 40 mg PO DAILY #30 capsule 05/05/16 Nifedipine [Procardia XL 30 mg Tablet] 30 mg PO BID #60 tab.er.24 05/05/16 Cephalexin [Cephalexin 500 MG Capsule] 1 cap PO QID 11/09/16 Allergies/Adverse Reactions: No Known Allergies Allergy (Verified 11/09/16 08:54) Review of Systems Constitutional: ABSENT: chills, fever(s), headache(s), weight gain, weight loss Eyes: ABSENT: visual disturbances Ears: ABSENT: hearing changes Cardiovascular: ABSENT: chest pain, dyspnea on exertion, edema, orthropnea, palpitations Respiratory: ABSENT: cough, hemoptysis Gastrointestinal: ABSENT: abdominal pain, constipation, diarrhea, hematemesis, hematochezia, nausea, vomiting Genitourinary: ABSENT: dysuria, hematuria Musculoskeletal: ABSENT: joint swelling Integumentary: ABSENT: rash, wounds Neurological: ABSENT: abnormal gait, abnormal speech, confusion, dizziness, focal weakness, syncope Psychiatric: ABSENT: anxiety, depression, homidical ideation, suicidal ideation Endocrine: ABSENT: cold intolerance, heat intolerance, polydipsia, polyuria Hematologic/Lymphatic: ABSENT: easy bleeding, easy bruising Physical Exam Vital Signs: Temp Pulse Resp BP Pulse Ox 98.8 F 85 25 H 182/110 H 91 L 11/10/16 02:00 11/10/16 02:00 11/10/16 02:38 11/10/16 01:59 11/10/16 02:38 Intake & Output 11/08/16 11/09/16 11/10/16 11:59 11:59 11:59 Output Total 1200 Balance -1200 Weight 213.2 kg General appearance: PRESENT: cooperative, mild distress, morbidly obese Head exam: PRESENT: atraumatic, normocephalic Eye exam: PRESENT: conjunctiva pink, EOMI, PERRLA. ABSENT: scleral icterus Ear exam: PRESENT: normal external ear exam Mouth exam: PRESENT: moist, tongue midline Neck exam: ABSENT: carotid bruit, JVD, lymphadenopathy, thyromegaly Respiratory exam: PRESENT: clear to auscultation dejah, decreased breath sounds, prolonged expiratory phas, symmetrical, tachypnea. ABSENT: accessory muscle use , chest wall tenderness, rhonchi, stridor Cardiovascular exam: PRESENT: RRR. ABSENT: diastolic murmur, rubs, systolic murmur Pulses: PRESENT: normal dorsalis pedis pul Vascular exam: PRESENT: normal capillary refill GI/Abdominal exam: PRESENT: normal bowel sounds, soft. ABSENT: distended, guarding, mass, organolmegaly, rebound, tenderness Rectal exam: PRESENT: deferred Extremities exam: PRESENT: full ROM. ABSENT: calf tenderness, clubbing, pedal edema Neurological exam: PRESENT: alert, awake, oriented to person, oriented to place , oriented to time, oriented to situation, CN II-XII grossly intact. ABSENT: motor sensory deficit Psychiatric exam: PRESENT: appropriate affect, normal mood. ABSENT: homicidal ideation, suicidal ideation Skin exam: PRESENT: dry, intact, warm. ABSENT: cyanosis, rash Results Laboratory Results: 11/09/16 11/10/16 23:33 00:38 Lactic Acid 1.0 Urine Color YELLOW Urine Appearance CLEAR Urine pH 7.0 Ur Specific [place] 1.010 Urine Protein NEGATIVE Urine Glucose (UA) NEGATIVE Urine Ketones NEGATIVE Urine Blood NEGATIVE Urine Nitrite NEGATIVE Ur Leukocyte Esterase NEGATIVE Urine WBC (Auto) 0 Urine RBC (Auto) 0 Assessment & Plan - Diagnosis (1) Hypoventilation associated with obesity syndrome Is this a current diagnosis for this admission?: Yes Plan: BiPAP avoidance of sedation or analgesic or excessive oxygen. Will obtain consultation with Dr. Mcfadden. (2) Acute and chronic respiratory failure with hypercapnia Is this a current diagnosis for this admission?: Yes Plan: Likely secondary to morbid obesity hypoventilation syndrome will avoid medications depressing respiratory drive, limit oxygen saturations to 88% to 92% (3) Hypertension Qualifiers: Hypertension type: essential hypertension Qualified Code(s): I10 - Essential (primary) hypertension Is this a current diagnosis for this admission?: Yes Plan: Resume home nifedipine, Lasix challenge, Vasotec and hydralazine. (4) Morbid obesity Is this a current diagnosis for this admission?: Yes Plan: Patient will require referral for bariatric surgery consideration (5) Tobacco dependence Is this a current diagnosis for this admission?: Yes Plan: Tobacco Dependence patient received tobacco cessation counseling and offered nicotine replacement options - Time Time Spent: 50 to 70 Minutes - Inpatient Certification Medical Necessity: Need Close Monitoring Due to Risk of Patient Decompensation
[2016-11-10] MEDS ORDERED: LACTULOSE SYRUP 20 GM/30 ML UDCUP PO ONE (04:45)
[2016-11-10] MEDS ORDERED: ENALAPRILAT DIHYDRATE INJ/PF 2.5 MG/2 ML SDV IV ONE (04:45)
[2016-11-10] MEDS: HEPARIN SOD (PORCINE) 5,000 UNIT/ML 1 ML SYRINGE SUBCUT SCH ×3 (05:24→22:42)
[2016-11-10] MEDS ORDERED: IPRATROPIUM/ALBUTEROL 0.5-2.5 MG/3 ML AMPUL NEB SCH (08:00)
--- NOTE | 2016-11-10 08:11 | EKG REPORT ---
SEVERITY:- BORDERLINE ECG - SINUS TACHYCARDIA INFERIOR Q WAVES, PROBABLY NORMAL VARIATION : Confirmed by: Salazar Marroqiun MD 10-Nov-2016 08:11:03
[2016-11-10] MEDS ORDERED: DICYCLOMINE HCL 20 MG TABLET PO PRN (09:29)
[2016-11-10] MEDS ORDERED: DOCUSATE SODIUM 100 MG CAPSULE PO SCH (10:00)
[2016-11-10] MEDS ORDERED: NIFEDIPINE 30 MG TAB.ER.24 PO SCH (10:00)
--- NOTE | 2016-11-10 11:11 | PDOC CONSULTATION ---
Consultation Consult Date: 11/10/16 Attending physician:: YG PERRY Consult reason:: acute/chronic resp failure History of Present Illness Admission Date/PCP: 11/09/16 23:21 History of Present Illness: ADIN HERNANDEZ III is a 26 year old male with a past medical history of hypertension, morbid obesity, Presents to the emergency room earlier in the day but leaves AMA; only to return to the emergency department with hypercapnia. He started on BiPAP and referred to the hospitalist for admission. He is currently on BiPAP I equal 18/E equals 6 with an FiO2 of 40% no ABG available just 1 VBG that demonstrated a PCO2 of 86. Apparently by history he has obesity hypoventilation syndrome, obstructive sleep apnea, tobacco abuse and hypertension.At this time he is very lethargic and additional information is not forthcoming. Past Medical History Cardiac Medical History: Reports: Hypertension Pulmonary Medical History: Reports: Asthma, Chronic Obstructive Pulmonary Disease (COPD) Psychiatric Medical History: Reports: Depression, Tobacco Dependency Social History Information Source: [facility] Records Smoking Status: Current Some Day Smoker Frequency of Alcohol Use: Rare Hx Recreational Drug Use: No Drugs: None Hx Prescription Drug Abuse: No - Advance Directive Resuscitation Status: Full Code Family History Family History: DM, Hypertension Parental Family History Reviewed: No Children Family History Reviewed: No Sibling(s) Family History Reviewed.: No Medication/Allergy Allergies/Adverse Reactions: No Known Allergies Allergy (Verified 11/09/16 08:54) Review of Systems ROS unobtainable: Due to mental status Physical Exam Vital Signs: Temp Pulse Resp BP Pulse Ox 98.8 F 85 23 H 161/106 H 90 L 11/10/16 02:00 11/10/16 02:00 11/10/16 06:00 11/10/16 05:19 11/10/16 06:00 Intake & Output 11/09/16 11/10/16 11/11/16 06:59 06:59 06:59 Intake Total 80 Output Total 2200 Balance -2120 Weight 213.2 kg General appearance: PRESENT: no acute distress, disheveled, morbidly obese Head exam: PRESENT: atraumatic, normocephalic Eye exam: PRESENT: conjunctiva pale Mouth exam: PRESENT: dry mucosa, neck supple, tongue midline, other - [place] 4 Neck exam: ABSENT: carotid bruit, JVD, lymphadenopathy, thyromegaly Respiratory exam: PRESENT: decreased breath sounds, prolonged expiratory phas, rhonchi, symmetrical, unlabored, wheezes Cardiovascular exam: PRESENT: RRR, +S1, +S2. ABSENT: bradycardia, clicks, irregular rhythm Pulses: PRESENT: normal radial pulses GI/Abdominal exam: PRESENT: diminished bowel sounds, soft. ABSENT: distended, guarding, mass, organolmegaly, rebound, tenderness Rectal exam: PRESENT: deferred Gentrourinary exam: PRESENT: indwelling catheter Extremities exam: PRESENT: +1 edema Skin exam: PRESENT: dry Results Laboratory Results: 11/09/16 11/10/16 23:33 00:38 Lactic Acid 1.0 Urine Color YELLOW Urine Appearance CLEAR Urine pH 7.0 Ur Specific [place] 1.010 Urine Protein NEGATIVE Urine Glucose (UA) NEGATIVE Urine Ketones NEGATIVE Urine Blood NEGATIVE Urine Nitrite NEGATIVE Ur Leukocyte Esterase NEGATIVE Urine WBC (Auto) 0 Urine RBC (Auto) 0 Assessment & Plan - Diagnosis (1) Hypoventilation associated with obesity syndrome Is this a current diagnosis for this admission?: Yes Plan: PCO2 84;213 kg;BMI 71 (2) Tobacco dependence Is this a current diagnosis for this admission?: Yes (3) Acute and chronic respiratory failure with hypercapnia Is this a current diagnosis for this admission?: Yes Plan: ABG KOLE - Time Critical Time spent with patient: 35 or more minutes - 50 min
[2016-11-10] MEDS ORDERED: MAGNESIUM HYDROXIDE SUSP 30 ML UDCUP PO PRN (12:35)
[2016-11-10] MEDS ORDERED: MAG HYDROX/AL HYDROX/SIMETH SUSP 30 ML UDCUP PO PRN (12:35)
--- NOTE | 2016-11-10 14:37 | PDOC PROGRESS REPORT ---
Subjective Progress Note for:: 11/10/16 Subjective:: Patient is seen on rounds. He is resting in bed on BIPAP therapy. He denies any dyspnea, chest pain or shortness of breath. He denies any nausea, abdominal pain or diarrhea. He denies any fevers or chills. He denies any arthralgias or myalgias Physical Exam Vital Signs: Temp Pulse Resp BP Pulse Ox 97.0 F 60 18 137/87 H 90 L 11/10/16 08:00 11/10/16 14:00 11/10/16 14:00 11/10/16 12:21 11/10/16 14:00 Intake & Output 11/09/16 11/10/16 11/11/16 06:59 06:59 06:59 Intake Total 80 237 Output Total 2200 800 Balance -2120 -563 Weight 213.2 kg General appearance: PRESENT: no acute distress, morbidly obese, well-developed, well-nourished Head exam: PRESENT: atraumatic, normocephalic Eye exam: PRESENT: conjunctiva pink, EOMI, PERRLA. ABSENT: scleral icterus Ear exam: PRESENT: normal external ear exam Mouth exam: PRESENT: moist, tongue midline Neck exam: PRESENT: carotid bruit, full ROM Respiratory exam: PRESENT: decreased breath sounds, symmetrical, unlabored Cardiovascular exam: PRESENT: RRR. ABSENT: diastolic murmur, rubs, systolic murmur Pulses: PRESENT: normal carotid pulses, normal radial pulses Vascular exam: PRESENT: normal capillary refill GI/Abdominal exam: PRESENT: normal bowel sounds, soft. ABSENT: distended, guarding, mass, organolmegaly, rebound, tenderness Rectal exam: PRESENT: deferred Extremities exam: PRESENT: full ROM. ABSENT: calf tenderness, clubbing, pedal edema Musculoskeletal exam: PRESENT: ambulatory Neurological exam: PRESENT: alert, awake, oriented to person, oriented to place , oriented to time, oriented to situation, CN II-XII grossly intact. ABSENT: motor sensory deficit Psychiatric exam: PRESENT: appropriate affect, normal mood. ABSENT: homicidal ideation, suicidal ideation Skin exam: PRESENT: erythema, intact - large area of mild erythem of abdomen pannus, warm Results Laboratory Results: 11/09/16 11/10/16 11/10/16 23:33 00:38 09:07 Carbonic Acid 2.34 H HCO3/H2CO3 Ratio 16:1 ABG pH 7.31 L ABG pCO2 77.6 H* ABG pO2 Not Reportable ABG HCO3 38.0 H ABG O2 Saturation Not Reportable ABG Base Excess 8.0 FiO2 40% Lactic Acid 1.0 Urine Color YELLOW Urine Appearance CLEAR Urine pH 7.0 Ur Specific [place] 1.010 Urine Protein NEGATIVE Urine Glucose (UA) NEGATIVE Urine Ketones NEGATIVE Urine Blood NEGATIVE Urine Nitrite NEGATIVE Ur Leukocyte Esterase NEGATIVE Urine WBC (Auto) 0 Urine RBC (Auto) 0 Assessment & Plan - Diagnosis (1) Acute and chronic respiratory failure with hypercapnia Is this a current diagnosis for this admission?: Yes Plan: Continue BIPAP therapy, steroids and nebulizer treatments. Consult with pulmonary Dr Mcfadden (2) COPD with acute exacerbation Is this a current diagnosis for this admission?: Yes Plan: As above (3) CO2 retention Is this a current diagnosis for this admission?: Yes (4) Cellulitis of trunk Qualifiers: Site of cellulitis of trunk: abdominal wall Qualified Code(s): L03.311 - Cellulitis of abdominal wall Is this a current diagnosis for this admission?: Yes (5) Edema Qualifiers: Edema type: generalized Qualified Code(s): R60.1 - Generalized edema Is this a current diagnosis for this admission?: Yes (6) Hyperkalemia Plan: Resolved (7) Hypertension Qualifiers: Hypertension type: essential hypertension Qualified Code(s): I10 - Essential (primary) hypertension Is this a current diagnosis for this admission?: Yes (8) Morbid obesity Is this a current diagnosis for this admission?: Yes - Time Time Spent with patient: 25-34 minutes Critical Time spent with patient: 15-24 minutes Medications reviewed and adjusted accordingly: Yes - Inpatient Certification Based on my medical assessment, after consideration of the patient's comorbidities, presenting symptoms, or acuity I expect that the services needed warrant INPATIENT care.: Yes I certify that my determination is in accordance with my understanding of Medicare's requirements for reasonable and necessary INPATIENT services [42 CFR 412.3e].: Yes
[2016-11-10] MEDS ORDERED: LEVALBUTEROL HCL NEB 1.25 MG/3 ML AMPUL NEB PRN (16:05)
[2016-11-10] MEDS ORDERED: PREDNISONE 20 MG TABLET PO ONE (17:00)
[2016-11-10] MEDS ORDERED: NYSTATIN TOPICAL POWDER 15 GM TP ONE (17:00)
[2016-11-10 17:37] LABS: ARTERIAL BLOOD BASE EXCESS 7.8 mmol/L; ARTERIAL BLOOD O2 SATURATION 95.7 % (94-98)
[2016-11-10] MEDS: CLINDAMYCIN HCL 150 MG CAPSULE PO SCH (17:38)
[2016-11-10] MEDS: DOCUSATE SODIUM 100 MG CAPSULE PO SCH (17:40)
[2016-11-10] MEDS: IPRATROPIUM/ALBUTEROL 0.5-2.5 MG/3 ML AMPUL NEB SCH (19:33)
[2016-11-10] MEDS: NIFEDIPINE 30 MG TAB.ER.24 PO SCH (22:40)
[2016-11-11] MEDS: CLINDAMYCIN HCL 150 MG CAPSULE PO SCH ×4 (00:31→17:19)
[2016-11-11 06:08] LABS: ABSOLUTE LYMPHOCYTES (AUTO) 1.3 10^3/uL (0.5-4.7); ABSOLUTE NEUT (AUTO) 10.4 10^3/uL (1.7-8.2); BASOPHILS % (AUTO) 0.3 % (0-2); EOSINOPHILS % (AUTO) 0.3 % (0-6); HEMATOCRIT 47.8 % (37.9-51.0); HEMOGLOBIN 14.7 g/dL (13.5-17.0); HGB HCT DIFFERENCE -3.7; LYMPHOCYTES % (AUTO) 10.2 % (13-45); MEAN CORPUSCULAR HEMOGLOBIN 27.5 pg (27.0-33.4); MEAN CORPUSCULAR HGB CONC 30.7 g/dL (32.0-36.0); MEAN CORPUSCULAR VOLUME 90 fl (80-97); MONOCYTES % (AUTO) 7.9 % (3-13); RED BLOOD COUNT 5.34 10^6/uL (4.35-5.55); RED CELL DISTRIBUTION WIDTH 16.5 % (11.5-14.0); SEGMENTED NEUTROPHILS % (AUTO) 81.3 % (42-78); WHITE BLOOD COUNT 12.8 10^3/uL (4.0-10.5)
[2016-11-11 06:21] LABS: ARTERIAL BLOOD BASE EXCESS 5.8 mmol/L; ARTERIAL BLOOD O2 SATURATION 94.7 % (94-98)
[2016-11-11] MEDS: HEPARIN SOD (PORCINE) 5,000 UNIT/ML 1 ML SYRINGE SUBCUT SCH ×3 (06:34→21:37)
[2016-11-11 06:36] LABS: ALANINE AMINOTRANSFERASE 30 U/L (21-72); ALBUMIN 4.2 g/dL (3.5-5.0); ALKALINE PHOSPHATASE 60 U/L (38-126); ANION GAP 8 (5-19); ASPARTATE AMINO TRANSFERASE 21 U/L (17-59); BILIRUBIN,DIRECT 0.3 mg/dL (0.0-0.4); BILIRUBIN,TOTAL 0.4 mg/dL (0.2-1.3); BLOOD UREA NITROGEN 25 mg/dL (7-20); CALCIUM 9.4 mg/dL (8.4-10.2); CARBON DIOXIDE 34 mmol/L (22-30); CHLORIDE 98 mmol/L (98-107); CREATININE RESULT 0.73 mg/dL (0.52-1.25); GLUCOSE 129 mg/dL (75-110); MAGNESIUM 2.1 mg/dL (1.6-2.3); POTASSIUM 4.9 mmol/L (3.6-5.0); SODIUM 140.2 mmol/L (137-145); TOTAL PROTEIN 7.9 g/dL (6.3-8.2)
[2016-11-11] MEDS: IPRATROPIUM/ALBUTEROL 0.5-2.5 MG/3 ML AMPUL NEB SCH ×3 (08:02→20:09)
--- NOTE | 2016-11-11 08:39 | RADIOLOGY REPORT (SQ) ---
EXAM DESCRIPTION: CHEST SINGLE VIEW COMPLETED DATE/TIME: 11/11/2016 8:30 am REASON FOR STUDY: resp failure COMPARISON: 03/29/2016, 05/01/2016, 11/09/2016 chest films EXAM PARAMETERS: NUMBER OF VIEWS: One view. TECHNIQUE: Single frontal radiographic view of the chest acquired. RADIATION DOSE: NA LIMITATIONS: Large patient, AP portable technique FINDINGS: LUNGS AND PLEURA: Limited technique. Left lower lobe infiltrate could not be excluded. [facility]. Right lung grossly clear. No pleural effusion. No gross pneumothorax. MEDIASTINUM AND HILAR STRUCTURES: No masses. Contour normal. HEART AND VASCULAR STRUCTURES: Moderate cardiomegaly, stable BONES: No acute findings. HARDWARE: None in the chest. OTHER: No other significant finding. IMPRESSION: Limited portable film. Left lower lobe infiltrate could not be excluded. TECHNICAL DOCUMENTATION: JOB ID: [id number]
[2016-11-11] MEDS: DOCUSATE SODIUM 100 MG CAPSULE PO SCH ×2 (09:40→17:20)
[2016-11-11] MEDS: NIFEDIPINE 30 MG TAB.ER.24 PO SCH ×2 (09:40→21:40)
[2016-11-11] MEDS: PREDNISONE 20 MG TABLET PO SCH ×2 (09:41→17:21)
[2016-11-11] MEDS: NYSTATIN TOPICAL POWDER 15 GM TP SCH ×2 (09:42→17:22)
--- NOTE | 2016-11-11 14:13 | PDOC PROGRESS REPORT ---
Subjective Progress Note for:: 11/11/16 Subjective:: Patient is seen on rounds. He is resting on side of the bed with oxygen via n/ ctherapy. He denies any dyspnea, chest pain or shortness of breath. He denies any nausea, abdominal pain or diarrhea. He denies any fevers or chills. He denies any arthralgias or myalgias Physical Exam Vital Signs: Temp Pulse Resp BP Pulse Ox 98.9 F 79 20 147/86 H 96 11/11/16 11:14 11/11/16 11:14 11/11/16 11:14 11/11/16 11:14 11/11/16 11:14 Intake & Output 11/10/16 11/11/16 11/12/16 06:59 06:59 06:59 Intake Total 80 1651 1200 Output Total 2200 4125 1800 Balance -9830 -6225 -600 Weight 213.2 kg 209.5 kg General appearance: PRESENT: no acute distress, morbidly obese, well-developed, well-nourished Head exam: PRESENT: atraumatic, normocephalic Eye exam: PRESENT: conjunctiva pink, EOMI, PERRLA. ABSENT: scleral icterus Ear exam: PRESENT: normal external ear exam Mouth exam: PRESENT: moist, tongue midline Neck exam: ABSENT: carotid bruit, JVD, lymphadenopathy, thyromegaly Respiratory exam: PRESENT: clear to auscultation dejah, decreased breath sounds, symmetrical, unlabored Cardiovascular exam: PRESENT: RRR. ABSENT: diastolic murmur, rubs, systolic murmur Pulses: PRESENT: normal dorsalis pedis pul Vascular exam: PRESENT: normal capillary refill GI/Abdominal exam: PRESENT: normal bowel sounds, soft. ABSENT: distended, guarding, mass, organolmegaly, rebound, tenderness Rectal exam: PRESENT: deferred Extremities exam: PRESENT: full ROM. ABSENT: calf tenderness, clubbing, pedal edema Musculoskeletal exam: PRESENT: ambulatory, full ROM, normal inspection Neurological exam: PRESENT: alert, awake, oriented to person, oriented to place , oriented to time, oriented to situation, CN II-XII grossly intact. ABSENT: motor sensory deficit Psychiatric exam: PRESENT: appropriate affect, normal mood. ABSENT: homicidal ideation, suicidal ideation Skin exam: PRESENT: dry, intact, warm. ABSENT: cyanosis, rash Results Laboratory Results: 11/11/16 05:07 11/11/16 05:07 11/10/16 11/11/16 11/11/16 17:24 05:07 05:07 WBC 12.8 H RBC 5.34 Hgb 14.7 Hct 47.8 MCV 90 MCH 27.5 MCHC 30.7 L RDW 16.5 H Plt Count 213 Seg Neutrophils % 81.3 H Lymphocytes % 10.2 L Monocytes % 7.9 Eosinophils % 0.3 Basophils % 0.3 Absolute Neutrophils 10.4 H Absolute Lymphocytes 1.3 Absolute Monocytes 1.0 Absolute Eosinophils 0.0 Absolute Basophils 0.0 Carbonic Acid 1.77 H HCO3/H2CO3 Ratio 19:1 ABG pH 7.39 ABG pCO2 58.7 H ABG pO2 81.3 ABG HCO3 35.0 H ABG O2 Saturation 95.7 ABG Base Excess 7.8 FiO2 40% Sodium 140.2 Potassium 4.9 Chloride 98 Carbon Dioxide 34 H Anion Gap 8 BUN 25 H Creatinine 0.73 Est GFR ( Amer) > 60 Est GFR (Non-Af Amer) > 60 Glucose 129 H Calcium 9.4 Magnesium 2.1 Total Bilirubin 0.4 AST 21 ALT 30 Alkaline Phosphatase 60 Total Protein 7.9 Albumin 4.2 11/11/16 05:56 WBC RBC Hgb Hct MCV MCH MCHC RDW Plt Count Seg Neutrophils % Lymphocytes % Monocytes % Eosinophils % Basophils % Absolute Neutrophils Absolute Lymphocytes Absolute Monocytes Absolute Eosinophils Absolute Basophils Carbonic Acid 2.03 H HCO3/H2CO3 Ratio 16:1 ABG pH 7.33 L ABG pCO2 67.4 H ABG pO2 80.3 ABG HCO3 34.4 H ABG O2 Saturation 94.7 ABG Base Excess 5.8 FiO2 35% Sodium Potassium Chloride Carbon Dioxide Anion Gap BUN Creatinine Est GFR ( Amer) Est GFR (Non-Af Amer) Glucose Calcium Magnesium Total Bilirubin AST ALT Alkaline Phosphatase Total Protein Albumin Impressions: Chest X-Ray 11/11/16 06:00 IMPRESSION: Limited portable film. Left lower lobe infiltrate could not be excluded. Assessment & Plan - Diagnosis (1) Acute and chronic respiratory failure with hypercapnia Is this a current diagnosis for this admission?: Yes Plan: Continue BIPAP therapy, steroids and nebulizer treatments. Consult with pulmonary Dr Mcfadden. Will do nocturnal pulse oximetry to qualify for CPAP (2) COPD with acute exacerbation Is this a current diagnosis for this admission?: Yes Plan: As above (3) CO2 retention Is this a current diagnosis for this admission?: Yes (4) Cellulitis of trunk Qualifiers: Site of cellulitis of trunk: abdominal wall Qualified Code(s): L03.311 - Cellulitis of abdominal wall Is this a current diagnosis for this admission?: Yes Plan: Clindamycin 300 mg po q6h (5) Edema Qualifiers: Edema type: generalized Qualified Code(s): R60.1 - Generalized edema Is this a current diagnosis for this admission?: Yes Plan: Improving (6) Hyperkalemia Plan: Resolved (7) Hypertension Qualifiers: Hypertension type: essential hypertension Qualified Code(s): I10 - Essential (primary) hypertension Is this a current diagnosis for this admission?: Yes Plan: Continue current medications (8) Morbid obesity Is this a current diagnosis for this admission?: Yes Plan: Counseled - Time Time Spent with patient: 25-34 minutes Critical Time spent with patient: 15-24 minutes Medications reviewed and adjusted accordingly: Yes Anticipated discharge: Home Within: within 24 hours
--- NOTE | 2016-11-11 15:15 | RADIOLOGY REPORT (SQ) ---
EXAM DESCRIPTION: CHEST SINGLE VIEW COMPLETED DATE/TIME: 11/09/2016, 2254 hours REASON FOR STUDY: Shortness of breath COMPARISON: 11/09/2016, 05/01/2016, 03/29/2016 chest films TECHNIQUE: AP portable chest film 11/09/2016, 2254 hours LIMITATIONS: None FINDINGS: No focal infiltrates. No pleural effusion or pneumothorax. Stable moderate cardiomegaly and prominent central venous structures. IMPRESSION: No acute infiltrates. Stable cardiomegaly and pulmonary vascular prominence.
[2016-11-11] MEDS: DICYCLOMINE HCL 20 MG TABLET PO SCH (17:19)
[2016-11-12] MEDS: CLINDAMYCIN HCL 150 MG CAPSULE PO SCH ×3 (01:10→11:29)
[2016-11-12] MEDS: DICYCLOMINE HCL 20 MG TABLET PO SCH ×3 (01:11→11:29)
[2016-11-12] MEDS: HEPARIN SOD (PORCINE) 5,000 UNIT/ML 1 ML SYRINGE SUBCUT SCH (06:27)
[2016-11-12] MEDS: IPRATROPIUM/ALBUTEROL 0.5-2.5 MG/3 ML AMPUL NEB SCH (08:46)
[2016-11-12] MEDS: DOCUSATE SODIUM 100 MG CAPSULE PO SCH (09:21)
[2016-11-12] MEDS: NIFEDIPINE 30 MG TAB.ER.24 PO SCH (09:34)
[2016-11-12] MEDS: NYSTATIN TOPICAL POWDER 15 GM TP SCH (09:35)
[2016-11-12] MEDS: PREDNISONE 20 MG TABLET PO SCH (09:35)
[2016-11-12] MEDS ORDERED: MULTIVITAMIN TABLET PO SCH (10:00)
[2016-11-12] MEDS ORDERED: LISINOPRIL 10 MG TABLET PO SCH (10:00)
[2016-11-12] MEDS ORDERED: IRON PO SCH (10:00)
[2016-11-12] MEDS ORDERED: FLUOXETINE HCL 20 MG CAPSULE PO SCH (10:00)
[2016-11-12] MEDS ORDERED: (PENDING PHARMACY ID) (Lisinopril [Prinivil] 20 MG) PO SCH (10:00)
[2016-11-12] MEDS ORDERED: [UNRECOGNIZED DRUG - OTHER] PO SCH (10:00)
[2016-11-12] MEDS ORDERED: MULTIVITS CA MIN PO SCH (10:00)
[2016-11-12] MEDS ORDERED: ASCORBIC ACID 500 MG TABLET PO SCH (10:00)
[2016-11-12] MEDS ORDERED: LEVOTHYROXINE SODIUM 0.112 MG TABLET PO SCH (10:00)
[2016-11-12] MEDS ORDERED: LYCOP PO SCH (10:00)
[2016-11-12 11:01] VITALS: BP 167/105
--- NOTE | 2016-11-12 12:19 | PDOC DISCHARGE SUMMARY ---
General - Admit/Disc Date/PCP Admission Date/Primary Care Provider: 11/09/16 23:21 Discharge Date: 11/12/16 - Discharge Diagnosis (1) Acute and chronic respiratory failure with hypercapnia Is this a current diagnosis for this admission?: Yes Summary: Improved with IV steroids, BIPAP and nebulizers. Patient needs sleep study post discharge in order for Medicaid to approve CPAP (2) COPD with acute exacerbation Is this a current diagnosis for this admission?: Yes Summary: As above (3) CO2 retention Is this a current diagnosis for this admission?: Yes (4) Cellulitis of trunk Is this a current diagnosis for this admission?: Yes Summary: Clindamycin for 7 more days (5) Edema Is this a current diagnosis for this admission?: Yes Summary: Resolved (6) Hyperkalemia Is this a current diagnosis for this admission?: No Summary: Resolved (7) Hypertension Is this a current diagnosis for this admission?: Yes Summary: Continue current medications,normotensive (8) Morbid obesity Is this a current diagnosis for this admission?: Yes - Additional Information Resuscitation Status: Full Code Discharge Diet: Cardiac Discharge Activity: Activity As Tolerated, Balance Activity w/Rest Home Medications: Albuterol Sulfate [Proair HFA] 2 puff IH Q4HP PRN 11/10/16 Albuterol Sulfate [Ventolin 0.083% Neb 2.5 mg/3 mL Ampul] 2.5 mg NEB RTQ4HP PRN 11/10/16 Ascorbic Acid [Vitamin C 500 mg Tablet] 500 mg PO DAILY 11/10/16 Dicyclomine HCl [Bentyl 20 mg Tablet] 20 mg PO Q6 11/10/16 Fluoxetine HCl [Prozac] 40 mg PO DAILY 11/10/16 Hydrochlorothiazide [Hydrodiuril 25 mg Tablet] 25 mg PO DAILY 11/10/16 Levothyroxine Sodium [Synthroid 0.112 mg Tablet] 112 mcg PO DAILY 11/10/16 Lisinopril [Prinivil] 20 mg PO DAILY 11/10/16 Multivits,Ca,Min/Iron/FA/Lycop [Centrum Men's Tablet] 1 tab PO DAILY 11/10/16 Clindamycin HCl [Cleocin HCl] 300 mg PO TID #21 capsule 11/12/16 Nebulizer Accessories [A.i.r.s. Nebulizer] 1 each PRN PRN #1 kit 11/12/16 Nebulizer/Compressor [Innospire Deluxe [place] Neb] 1 each PRN PRN #1 each Nystatin [Mycostatin Topical Powder 15 gm] 1 applic TP BID bottle 11/12/16 Prednisone [Deltasone 20 mg Tablet] 20 mg PO BID #10 tablet 11/12/16 History of Present Illness Patient complains of: Shortness of breath and bump on stomach History of Present Illness: ADIN HERNANDEZ III is a 26 year old male with a past medical history of hypertension, morbid obesity, BMI greater than 70, apparent continuous oxygen dependence, tobacco dependence and obstructive sleep apnea. Presents to the emergency room earlier in the day but leaves AMA for social reasons only to return to the emergency department with hypercapnia. He started on BiPAP and referred to the hospitalist for admission. He denies fever chills nausea vomiting rhinorrhea or cough. Hospital Course Hospital Course: Patient was admitted to the [facility] on telemetry. He was started on nebulizer treatments and steroids. Dr Mcfadden was consulted from pulmonology. Patient was placed on BIPAP therapy for hypercapnea. He was started on oral clindamycin for mild cellulitis of his pannus. He had one positive blood culture that was a contaminant. His breathing improved. Nocturnal pulse oximetry was done which showed oxygen saturations in the 80's. Discharge planning was consulted to assist with discharge planning. Medicaid has declined approval for CPAP until sleep study was done. The patient will discharged home with appropriate follow up Physical Exam Vital Signs: Temp Pulse Resp BP Pulse Ox 97.4 F 97 16 167/105 H 97 11/12/16 10:59 11/12/16 10:59 11/12/16 10:59 11/12/16 10:59 11/12/16 10:59 Pulse Oximeter Nocturnal Start: 11/11/16 22: 00 Freq: RTPRN Status: Discharge Document 11/12/16 04:24 EAL (Rec: 11/12/16 04:25 EAL [email or web address]) Nocturnal Pulse Oximetry Equipment Usage Equipment in Use Oxygen Delivery Method (includes room Bi-pap air) O2 Sat by Pulse Oximetry (92-100) 92 Continuous Pulse Oximeter Set Up No Continuous SpO2 Discontinued No Continuous SpO2 Machine # [id number] Intake & Output 11/11/16 11/12/16 11/13/16 06:59 06:59 06:59 Intake Total 1651 3370 Output Total 4125 2600 Balance -2474 770 Weight 209.5 kg 208.6 kg General appearance: PRESENT: no acute distress, well-developed, well-nourished Head exam: PRESENT: atraumatic, normocephalic Eye exam: PRESENT: conjunctiva pink, EOMI, PERRLA. ABSENT: scleral icterus Ear exam: PRESENT: normal external ear exam Mouth exam: PRESENT: moist, tongue midline Neck exam: ABSENT: carotid bruit, JVD, lymphadenopathy, thyromegaly Respiratory exam: PRESENT: clear to auscultation dejah. ABSENT: rales, rhonchi, wheezes Cardiovascular exam: PRESENT: RRR. ABSENT: diastolic murmur, rubs, systolic murmur Pulses: PRESENT: normal dorsalis pedis pul Vascular exam: PRESENT: normal capillary refill GI/Abdominal exam: PRESENT: normal bowel sounds, soft. ABSENT: distended, guarding, mass, organolmegaly, rebound, tenderness Rectal exam: PRESENT: deferred Extremities exam: PRESENT: full ROM. ABSENT: calf tenderness, clubbing, pedal edema Neurological exam: PRESENT: alert, awake, oriented to person, oriented to place , oriented to time, oriented to situation, CN II-XII grossly intact. ABSENT: motor sensory deficit Psychiatric exam: PRESENT: appropriate affect, normal mood. ABSENT: homicidal ideation, suicidal ideation Skin exam: PRESENT: dry, erythema, warm Results Laboratory Results: 11/11/16 05:07 11/11/16 05:07 11/09/16 23:33 Blood Blood Culture - Final Micrococcus Species Impressions: Chest X-Ray 11/11/16 06:00 IMPRESSION: Limited portable film. Left lower lobe infiltrate could not be excluded. Qualifiers PATEINT BEING DISCHARGED WITH ANY OF THE FOLLOWING DIAGNOSIS?: No Plan Discharge Plan: Home Time Spent: Less than 30 Minutes
== END 2016-11-12 11:40 | disposition home or self-care (01) | DRG 189 ==
LOC: ER 22:22 → EH 23:21 → UNDOADMIN 23:23 → EH 23:23 → ICU 11-10 02:20 → 5 11-10 07:40 → ICU 11-10 07:42 → 3W 11-10 20:31
PROVIDERS: ADMIT Internal Medicine; ATTEND Internal Medicine
PROC: 5A09457 Assistance with Respiratory Ventilation, 24-96 Consecutive Hours, Continuous Positive Airway Pressure (ICD-10-PCS; principal; 2016-11-09)
DX: J96.22 Acute and chronic respiratory failure with hypercapnia (principal); J44.1 Chronic obstructive pulmonary disease with (acute) exacerbation; L03.311 Cellulitis of abdominal wall; Z68.45 Body mass index [BMI] 70 or greater, adult; E87.5 Hyperkalemia; I10 Essential (primary) hypertension; G47.33 Obstructive sleep apnea (adult) (pediatric); E66.01 Morbid (severe) obesity due to excess calories; Z79.899 Other long term (current) drug therapy; Z99.81 Dependence on supplemental oxygen; F17.200 Nicotine dependence, unspecified, uncomplicated
CPT/HCPCS: 36415; 36600; 71010; 80053; 81001; 82803; 83605; 83735; 84100; 85025; 87040; 87077; 93005; 93010; 94660; 94762; 94799; 99285; J0360; J1644; J1940; J2920; J3475; J3490; J7512; J7620

== ENCOUNTER 2017-12-11 16:08 | Inpatient (IN) | payer MEDICAID ==
[2017-12-11] MEDS ORDERED: METHYLPREDNISOLONE INJ 125 MG/2 ML SDV IV ONE (16:36)
[2017-12-11] MEDS ORDERED: MAGNESIUM SULFATE/D5W 1 GM/100 ML RTUPB IV ONE (16:36)
[2017-12-11] MEDS ORDERED: IPRATROPIUM/ALBUTEROL 0.5-2.5 MG/3 ML AMPUL NEB ONE (16:36)
[2017-12-11] MEDS ORDERED: ALBUTEROL SULFATE 0.083% NEB 2.5 MG/3 ML AMPUL NEB ONE (16:36)
--- NOTE | 2017-12-11 16:41 | RADIOLOGY REPORT (SQ) ---
EXAM DESCRIPTION: CHEST SINGLE VIEW COMPLETED DATE/TIME: 12/11/2017 4:31 pm REASON FOR STUDY: sob COMPARISON: 11/11/2016 NUMBER OF VIEWS: One view. TECHNIQUE: Single frontal radiographic view of the chest acquired. LIMITATIONS: None. FINDINGS: LUNGS AND PLEURA: No opacities, masses or pneumothorax. No pleural effusion. MEDIASTINUM AND HILAR STRUCTURES: No masses or contour abnormality. HEART AND VASCULATURE: Cardiac enlargement. Vascular congestion. BONES: No acute findings. HARDWARE: None in the chest. OTHER: No other significant finding. IMPRESSION: CARDIAC ENLARGEMENT. VASCULAR CONGESTION. TECHNICAL DOCUMENTATION: JOB ID: [id number] [employer]- All Rights Reserved Reading location - IP/workstation name: [email or web address]
[2017-12-11 18:41] LABS: ABSOLUTE EOSINOPHILS # (AUTO) 0.3 10^3/uL (0.0-0.6); ABSOLUTE LYMPHOCYTES (AUTO) 1.3 10^3/uL (0.5-4.7); ABSOLUTE MONOCYTES (AUTO) 0.8 10^3/uL (0.1-1.4); ABSOLUTE NEUT (AUTO) 5.6 10^3/uL (1.7-8.2); BASOPHILS % (AUTO) 0.3 % (0-2); EOSINOPHILS % (AUTO) 4.1 % (0-6); HEMATOCRIT 48.8 % (37.9-51.0); LYMPHOCYTES % (AUTO) 16.2 % (13-45); MEAN CORPUSCULAR HEMOGLOBIN 29.4 pg (27.0-33.4); MEAN CORPUSCULAR HGB CONC 32.7 g/dL (32.0-36.0); MEAN CORPUSCULAR VOLUME 90 fl (80-97); MONOCYTES % (AUTO) 9.4 % (3-13); PLATELET COUNT 227 10^3/uL (150-450); RED BLOOD COUNT 5.44 10^6/uL (4.35-5.55); RED CELL DISTRIBUTION WIDTH 15.9 % (11.5-14.0); TOTAL CELLS COUNTED % (AUTO) 100 %
[2017-12-11 18:43] LABS: INTERNATIONAL RATION (INR) 0.93; PROTHROMBIN TIME 12.9 SEC (11.4-15.4)
[2017-12-11 18:59] LABS: ALANINE AMINOTRANSFERASE 40 U/L (21-72); ALBUMIN 3.7 g/dL (3.5-5.0); ALKALINE PHOSPHATASE 58 U/L (38-126); ASPARTATE AMINO TRANSFERASE 35 U/L (17-59); BILIRUBIN,DIRECT 0.5 mg/dL (0.0-0.4); BILIRUBIN,TOTAL 0.5 mg/dL (0.2-1.3); BLOOD UREA NITROGEN 13 mg/dL (7-20); CALCIUM 8.5 mg/dL (8.4-10.2); CARBON DIOXIDE 36 mmol/L (22-30); GLUCOSE 97 mg/dL (75-110); TOTAL PROTEIN 7.2 g/dL (6.3-8.2)
[2017-12-11 19:04] LABS: ANION GAP 3 (5-19); CHLORIDE 104 mmol/L (98-107); SODIUM 142.5 mmol/L (137-145)
[2017-12-11 19:18] LABS: VENOUS BLOOD BASE EXCESS 4.4 mmol/L; VENOUS BLOOD HCO3 36.2 mmol/L (20-32); VENOUS BLOOD PH 7.21 (7.30-7.42)
[2017-12-11 19:20] LABS: VENOUS BLOOD PCO2 91.8 mmHg (35-63)
[2017-12-11 19:28] LABS: APPEARANCE,URINE CLEAR; BILIRUBIN,URINE NEGATIVE (NEGATIVE); COLOR,URINE YELLOW; GLUCOSE, URINE NEGATIVE (NEGATIVE); KETONES,URINE NEGATIVE (NEGATIVE); PROTEIN,URINE 30 mg/dL (NEGATIVE); URINE SPECIFIC GRAVITY 1.022; UROBILINOGEN,URINE NEGATIVE mg/dL (<2.0)
[2017-12-11 19:29] LABS: LEUKOCYTE ESTERASE,URINE NEGATIVE (NEGATIVE); NITRITE,URINE NEGATIVE (NEGATIVE)
[2017-12-11 21:15] LABS: ARTERIAL BLOOD BASE EXCESS 3.3 mmol/L; ARTERIAL BLOOD FIO2 60%; ARTERIAL BLOOD H2CO3 2.63 mmol/L (1.05-1.35); ARTERIAL BLOOD HCO3 34.8 mmol/L (20-24); ARTERIAL BLOOD PH 7.22 (7.35-7.45); ARTERIAL BLOOD PO2 194.6 mmHg (80-100); ARTERIAL BLOOD TOTAL CO2 37.5 mmol/L (23-27)
[2017-12-11 21:21] LABS: ARTERIAL BLOOD PCO2 87.5 mmHg (35-45)
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
[2017-12-11] MEDS ORDERED: MAG HYDROX/AL HYDROX/SIMETH SUSP 30 ML UDCUP PO PRN (22:16)
[2017-12-11] MEDS ORDERED: ACETAMINOPHEN 325 MG TABLET PO PRN (22:16)
[2017-12-11] MEDS ORDERED: MAGNESIUM HYDROXIDE SUSP 30 ML UDCUP PO PRN (22:16)
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
[2017-12-12 06:40] LABS: ARTERIAL BLOOD H2CO3 2.62 mmol/L (1.05-1.35); ARTERIAL BLOOD HCO3 35.5 mmol/L (20-24); ARTERIAL BLOOD O2 SATURATION 92.8 % (94-98); ARTERIAL BLOOD PH 7.23 (7.35-7.45); ARTERIAL BLOOD PO2 79.7 mmHg (80-100); ARTERIAL BLOOD TOTAL CO2 38.1 mmol/L (23-27)
[2017-12-12 06:42] LABS: ARTERIAL BLOOD FIO2 100%
[2017-12-12 06:44] LABS: ARTERIAL BLOOD PCO2 87.2 mmHg (35-45)
[2017-12-12 07:27] LABS: ABSOLUTE LYMPHOCYTES (AUTO) 0.7 10^3/uL (0.5-4.7); ABSOLUTE MONOCYTES (AUTO) 0.2 10^3/uL (0.1-1.4); ABSOLUTE NEUT (AUTO) 7.6 10^3/uL (1.7-8.2); BASOPHILS % (AUTO) 0.4 % (0-2); EOSINOPHILS % (AUTO) 0.1 % (0-6); HEMATOCRIT 47.6 % (37.9-51.0); HEMOGLOBIN 15.6 g/dL (13.5-17.0); LYMPHOCYTES % (AUTO) 7.9 % (13-45); MEAN CORPUSCULAR HEMOGLOBIN 29.5 pg (27.0-33.4); MEAN CORPUSCULAR HGB CONC 32.8 g/dL (32.0-36.0); MEAN CORPUSCULAR VOLUME 90 fl (80-97); MONOCYTES % (AUTO) 2.3 % (3-13); PLATELET COUNT 232 10^3/uL (150-450); RED BLOOD COUNT 5.29 10^6/uL (4.35-5.55); RED CELL DISTRIBUTION WIDTH 15.7 % (11.5-14.0); SEGMENTED NEUTROPHILS % (AUTO) 89.3 % (42-78); TOTAL CELLS COUNTED % (AUTO) 100 %; WHITE BLOOD COUNT 8.5 10^3/uL (4.0-10.5)
[2017-12-12 09:35] LABS: ANION GAP 8 (5-19); BLOOD UREA NITROGEN 14 mg/dL (7-20); CALCIUM 9.5 mg/dL (8.4-10.2); CARBON DIOXIDE 33 mmol/L (22-30); CHLORIDE 100 mmol/L (98-107); GLUCOSE 176 mg/dL (75-110); POTASSIUM 5.6 mmol/L (3.6-5.0); SODIUM 141.3 mmol/L (137-145)
[2017-12-12] MEDS: HEPARIN SOD (PORCINE) 5,000 UNIT/ML 1 ML SYRINGE SUBCUT SCH ×3 (14:11→22:50)
[2017-12-12] MEDS: DOCUSATE SODIUM 100 MG CAPSULE PO SCH ×2 (15:22→17:06)
--- NOTE | 2017-12-12 15:28 | EKG REPORT ---
SEVERITY:- ABNORMAL ECG - SINUS RHYTHM INCOMPLETE RIGHT BUNDLE BRANCH BLOCK INFERIOR Q WAVES, PROBABLY NORMAL VARIATION : Confirmed by: Marina Sears MD 12-Dec-2017 15:27:18
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
[2017-12-13] MEDS: HEPARIN SOD (PORCINE) 5,000 UNIT/ML 1 ML SYRINGE SUBCUT SCH ×3 (05:54→22:30)
[2017-12-13 06:18] LABS: BLOOD UREA NITROGEN 18 mg/dL (7-20); CALCIUM 8.9 mg/dL (8.4-10.2); GLUCOSE 94 mg/dL (75-110); POTASSIUM 5.2 mmol/L (3.6-5.0)
[2017-12-13 06:24] LABS: ANION GAP 5 (5-19); CARBON DIOXIDE 36 mmol/L (22-30); CHLORIDE 100 mmol/L (98-107)
[2017-12-13 10:11] LABS: HEMATOCRIT 44.6 % (37.9-51.0); HEMOGLOBIN 14.6 g/dL (13.5-17.0); MEAN CORPUSCULAR HEMOGLOBIN 29.5 pg (27.0-33.4); MEAN CORPUSCULAR HGB CONC 32.7 g/dL (32.0-36.0); MEAN CORPUSCULAR VOLUME 90 fl (80-97); PLATELET COUNT 200 10^3/uL (150-450); RED BLOOD COUNT 4.95 10^6/uL (4.35-5.55); RED CELL DISTRIBUTION WIDTH 16.2 % (11.5-14.0); WHITE BLOOD COUNT 9.7 10^3/uL (4.0-10.5)
[2017-12-13] MEDS: DOCUSATE SODIUM 100 MG CAPSULE PO SCH ×2 (10:14→17:23)
[2017-12-13 10:47] LABS: BASOPHILS % (MANUAL) 0 % (0-2); EOSINOPHILS % (MANUAL) 0 % (0-6)
[2017-12-13 10:50] LABS: ABSOLUTE LYMPHOCYTES# (MANUAL) 1.7 10^3/uL (0.5-4.7); ABSOLUTE MONOCYTES # (MANUAL) 1.1 10^3/uL (0.1-1.4); ABSOLUTE NEUTROPHILS# (MANUAL) 6.9 10^3/uL (1.7-8.2); ANISOCYTOSIS 1+; HYPOCHROMASIA SLIGHT; LYMPHOCYTES % (MANUAL) 17 % (13-45); MONOCYTES % (MANUAL) 11 % (3-13); NUCLEATED RED BLOOD CELLS 1 /100 WBC (0); PLATELET COMMENT ADEQUATE; POLYCHROMASIA SLIGHT; SEGMENTED NEUTROPHILS % (MAN) 71 % (42-78); TOTAL CELLS COUNTED 100; TOXIC VACUOLATION PRESENT
[2017-12-13 11:38] LABS: ARTERIAL BLOOD BASE EXCESS 8.9 mmol/L; ARTERIAL BLOOD FIO2 4L; ARTERIAL BLOOD H2CO3 2.43 mmol/L (1.05-1.35); ARTERIAL BLOOD O2 SATURATION 93.9 % (94-98); ARTERIAL BLOOD PO2 79.3 mmHg (80-100); ARTERIAL BLOOD TOTAL CO2 41.5 mmol/L (23-27)
[2017-12-13 11:39] LABS: ARTERIAL BLOOD PCO2 80.7 mmHg (35-45)
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
--- NOTE | 2017-12-13 23:39 | Progress Note ---
Provider Note Provider Note: TELEMEDICINE PHYSICIAN PROGRESS NOTE: D/W RN; medical records reviewed; home medications reconciled: - Resume Lisinopril 20mg PO Hoang starting 12/14/2017 (AM); patient is hemodynamically stable with no contraindication to ACEi therapy noted - Resume Levothyroxine 100mcg PO Daily starting 12/14/2017 (AM) - Resume Buspar 2mg PO BID starting 12/13/2017 (PM) - Resume Zoloft 150mg PO Daily starting 12/13/2017 (PM) - Add Nicotine replacement therapy to regimen DAVID
[2017-12-14] MEDS ORDERED: BUSPIRONE HCL 10 MG TABLET PO ONE (00:15)
[2017-12-14] MEDS ORDERED: NICOTINE 14 MG/24 HR PATCH.TD24 TD ONE (00:15)
[2017-12-14] MEDS ORDERED: SERTRALINE HCL 50 MG TABLET PO ONE (00:15)
[2017-12-14] MEDS: HEPARIN SOD (PORCINE) 5,000 UNIT/ML 1 ML SYRINGE SUBCUT SCH ×3 (05:39→22:13)
[2017-12-14 06:30] LABS: ANION GAP 7 (5-19); BLOOD UREA NITROGEN 18 mg/dL (7-20); CALCIUM 9.1 mg/dL (8.4-10.2); CARBON DIOXIDE 34 mmol/L (22-30); CHLORIDE 101 mmol/L (98-107); GLUCOSE 88 mg/dL (75-110); POTASSIUM 5.1 mmol/L (3.6-5.0); SODIUM 141.6 mmol/L (137-145)
[2017-12-14] MEDS: DOCUSATE SODIUM 100 MG CAPSULE PO SCH ×2 (09:54→17:25)
[2017-12-14] MEDS ORDERED: LEVOTHYROXINE SODIUM 0.1 MG TABLET PO SCH (10:00)
[2017-12-14] MEDS: BUSPIRONE HCL 10 MG TABLET PO SCH ×2 (10:06→17:26)
[2017-12-14] MEDS: NICOTINE 14 MG/24 HR PATCH.TD24 TD SCH (10:06)
[2017-12-14] MEDS: LISINOPRIL 10 MG TABLET PO SCH (10:06)
[2017-12-14] MEDS: LEVOTHYROXINE SODIUM 0.1 MG TABLET PO SCH (10:06)
[2017-12-14] MEDS: HYDROCHLOROTHIAZIDE 12.5 MG TABLET PO SCH (10:06)
[2017-12-14] MEDS: SERTRALINE HCL 50 MG TABLET PO SCH (10:06)
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
[2017-12-15] MEDS: LEVOTHYROXINE SODIUM 0.1 MG TABLET PO SCH (05:23)
[2017-12-15] MEDS: HEPARIN SOD (PORCINE) 5,000 UNIT/ML 1 ML SYRINGE SUBCUT SCH ×3 (05:23→21:04)
[2017-12-15] MEDS: NICOTINE 14 MG/24 HR PATCH.TD24 TD SCH (10:05)
[2017-12-15] MEDS: LISINOPRIL 10 MG TABLET PO SCH (10:05)
[2017-12-15] MEDS: HYDROCHLOROTHIAZIDE 12.5 MG TABLET PO SCH (10:05)
[2017-12-15] MEDS: BUSPIRONE HCL 10 MG TABLET PO SCH ×2 (10:06→17:18)
[2017-12-15] MEDS: DOCUSATE SODIUM 100 MG CAPSULE PO SCH ×2 (10:06→17:18)
[2017-12-15] MEDS: SERTRALINE HCL 50 MG TABLET PO SCH (10:06)
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
[2017-12-16] MEDS: HEPARIN SOD (PORCINE) 5,000 UNIT/ML 1 ML SYRINGE SUBCUT SCH ×2 (05:26→15:20)
[2017-12-16] MEDS: LEVOTHYROXINE SODIUM 0.1 MG TABLET PO SCH (05:38)
[2017-12-16] MEDS: NICOTINE 14 MG/24 HR PATCH.TD24 TD SCH (10:33)
[2017-12-16] MEDS: SERTRALINE HCL 50 MG TABLET PO SCH (10:34)
[2017-12-16] MEDS: BUSPIRONE HCL 10 MG TABLET PO SCH ×2 (10:34→17:04)
[2017-12-16] MEDS: LISINOPRIL 10 MG TABLET PO SCH (10:34)
[2017-12-16] MEDS: HYDROCHLOROTHIAZIDE 12.5 MG TABLET PO SCH (10:34)
[2017-12-16] MEDS: DOCUSATE SODIUM 100 MG CAPSULE PO SCH ×2 (10:35→17:04)
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
[2017-12-16 20:05] VITALS: BP 147/95
== END 2017-12-16 20:13 | disposition home or self-care (01) | DRG 189 ==
LOC: ER 16:08 → EH 21:56 → 3S 12-12 12:35
PROVIDERS: ADMIT Internal Medicine; ATTEND Internal Medicine
PROC: 5A09557 Assistance with Respiratory Ventilation, Greater than 96 Consecutive Hours, Continuous Positive Airway Pressure (ICD-10-PCS; principal; 2017-12-11)
PROC: 3E0F73Z Introduction of Anti-inflammatory into Respiratory Tract, Via Natural or Artificial Opening (ICD-10-PCS; 2017-12-11)
DX: J96.21 Acute and chronic respiratory failure with hypoxia (principal); E66.2 Morbid (severe) obesity with alveolar hypoventilation; Z68.45 Body mass index [BMI] 70 or greater, adult; J96.22 Acute and chronic respiratory failure with hypercapnia; F32.9 Major depressive disorder, single episode, unspecified; F17.210 Nicotine dependence, cigarettes, uncomplicated; I10 Essential (primary) hypertension; J44.9 Chronic obstructive pulmonary disease, unspecified; F41.9 Anxiety disorder, unspecified; Z99.12 Encounter for respirator [ventilator] dependence during power failure; Z99.81 Dependence on supplemental oxygen; Z83.3 Family history of diabetes mellitus; Z82.49 Family history of ischemic heart disease and other diseases of the circulatory system
CPT/HCPCS: 36415; 71045; 80048; 80053; 81001; 82803; 82962; 83605; 83735; 83880; 84443; 85025; 85610; 87040; 87077; 87086; 87088; 87186; 93005; 93010; 94640; 94660; 94667; 94668; 94799; 96365; 96375; 99291; J1644; J2930; J3475; J7620